=== PATIENT | female | born 2000 | race Caucasian/White ===

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

== ENCOUNTER → 2021-09-15 | Outpatient (CLI) | payer OTHER, MEDICAID, SELFPAY ==
[2021-09-18 06:08] LABS: Chlamydia By Nucleic Acid AMP Negative (Negative)
[2021-09-18 12:42] LABS: Gonococcus By Nucleic Acid AMP Negative (Negative)
== END | disposition home or self-care (01) ==
LOC: LABSPEC 12:12
PROVIDERS: PCP Family Medicine; Visit Provider Obstetrics & Gynecology
DX: Z11.3 Encounter for screening for infections with a predominantly sexual mode of transmission (principal)
CPT/HCPCS: 87491; 87591

== ENCOUNTER 2021-09-16 16:38 | Emergency (ER) | payer OTHER, MEDICAID, SELFPAY ==
[2021-09-16 16:39] VITALS: BP 117/63; PULSE 101; RESP 18; TEMP 38.3; O2SAT 99; BMI 19.9
--- NOTE | 2021-09-16 16:54 | EDS_ITS ---
HPI History of Present Illness Chief Complaint: General Illness Narrative Narrative: 20-year-old female past medical history of previous admission for pyelonephritis in June, 2 months ago, presents with left-sided back pain that she is had for 3 days. She has had fever, nausea, and vomiting additionally. Pain is mainly in her left low back. She has urinary hesitancy but no dysuria or pain with urination. She denies any gross hematuria but states that she had to her regular menses this month which was the reason why she was having blood in her urine. She recently took Tylenol 1 hour prior to arrival for a fever as high as 103 ?F. She denies any exacerbating or alleviating factors to her left back pain. She has had multiple episodes of nausea and vomiting since midnight, approximately 16 hours ago. [facility] Medical History Anxiety and depression COVID-19 Pyelonephritis Home Medications ondansetron 4 mg disintegrating tablet 4 mg PO Q6H PRN nausea and vomiting #20 tabs 09/16/21 [Rx Last Taken Unknown] sulfamethoxazole 800 mg-trimethoprim 160 mg tablet (Bactrim DS) 1 tab PO BID #20 tabs 09/16/21 [Rx Last Taken Unknown] Allergy/AdvReac Type Severity Reaction Status Date / Time morphine Allergy Hives Verified 09/16/21 16:42 ketorolac [From Toradol] AdvReac Vomiting Verified 09/16/21 16:42 Social History Smoking Status: Never smoker ROS ROS ED ROS Narrative Constitutional: Positive fever, no chills. HEENT: No sore throat. No neck pain. No loss of vision. No rhinorrhea. Cardiovascular: No chest pain. No palpitations. No pedal edema. Respiratory: No cough, no shortness of breath. Abdominal: No abdominal pain. Positive nausea. Positive vomiting. Genitourinary: No dysuria. No hematuria. Urinary hesitancy. Musculoskeletal: No myalgias. No arthralgias. Low back pain, left. Neurologic: No headaches. No dizziness. No lightheadedness. Skin: No rash. No change in color. Psychiatric: No depression. No anxiety. EXAM Physical Exam Narrative Exam Narrative: Elevated temperature. Vital signs noted. Nontoxic-appearing. HEENT: Normocephalic. Atraumatic. PERRL, EOMI. Neck soft and supple. No point tenderness or step off. Cardiovascular: Regular rate and rhythm with intermittent tachycardia.. No murmurs, rubs, or gallops appreciated. Respiratory: No tachypnea. Lungs clear to auscultation bilaterally. Gastrointestinal: Abdomen soft, nontender, with normoactive bowel sounds. No rebound or guarding. Neurological: Awake. Alert. Nonfocal, nonlateralizing. Skin: No rash. Normal color. No pallor. Musculoskeletal: No pedal edema. Full range of motion extremities. Positive CVA tenderness to percussion, left. Const Vital Signs: 09/16/21 16:39 09/16/21 17:15 09/16/21 19:26 Temperature 101 F H Temperature Source Temporal Pulse Rate 101 H Respiratory Rate 18 18 Respiratory Effort Normal Respiratory Pattern Normal Blood Pressure 117/63 Blood Pressure Mean 81 Pulse Ox 99 99 Oxygen Delivery Method Room Air Room Air 09/16/21 20:58 Temperature 100.4 F H Temperature Source Pulse Rate Respiratory Rate Respiratory Effort Respiratory Pattern Blood Pressure Blood Pressure Mean Pulse Ox Oxygen Delivery Method MDM MDM MDM Narrative Medical decision making narrative: Concern is for pyelonephritis on the left. She has an elevated temperature of 101 ?F in the emergency department. She is normotensive. I will obtain a CBC, CMP, urinalysis, and urine . She was bolused normal saline 1 L intravenously. Urine is negative. She has an elevated white count of 16.0, hemoglobin normal at 13.2, platelet count 266. Sodium 135 with a potassium of 3.4. Normal BUN of 8 and normal creatinine 0.7. Her urinalysis does show positive nitrites and greater than 100 WBCs. RBCs 5-10. I do feel that given her clinical picture that she has pyelonephritis. She has not had nausea and vomiting here in the emergency department. She was able to tolerate her oral Bactrim here. She will be given prescriptions for Bactrim and Zofran. I feel she can be discharged safely home with follow-up. She will take Tylenol as needed for her fever and pain. Follow-up with her primary care physician. She was told to return with intractable nausea and vomiting, inability to take her medications, new or worsening symptoms. She does not meet inpatient criteria as of yet. Disposition is discharged home in stable condition. Lab Data Attestation: I reviewed the patient's lab results. Labs: Laboratory Results - last 24 hr 09/16/21 09/16/21 09/16/21 17:03 17:03 17:03 WBC 16.0 H RBC 4.58 Hgb 13.2 Hct 39.3 MCV 85.8 MCH 28.8 MCHC 33.6 RDW Std Deviation 40.7 RDW Coeff of Rene 13.1 Plt Count 266 MPV 10.3 Immature Gran % (Auto) 0.500 Neut % (Auto) 82.3 H Lymph % (Auto) 7.8 L [place] % (Auto) 9.0 Eos % (Auto) 0.0 Baso % (Auto) 0.4 Absolute Neuts (auto) 13.1 H Absolute Lymphs (auto) 1.25 Nucleated RBC % 0 Sodium 135 L Potassium 3.4 L Chloride 104 Carbon Dioxide 22.0 Anion Gap 9 BUN 8 Creatinine 0.70 Estim Creat Clear Calc 100.90 Est GFR (MDRD) Af Amer 139 Est GFR (MDRD) Non-Af 115 BUN/Creatinine Ratio 11.5 Glucose 98 Calcium 8.7 Total Bilirubin 0.80 AST 10 L ALT 15 Alkaline Phosphatase 70 Total Protein 7.4 Albumin 3.5 Globulin 3.9 Albumin/Globulin Ratio 0.9 Urine Color Yellow Urine Clarity Cloudy Urine pH 6.0 Ur Specific [place] 1.020 Urine Protein 100 H Urine Glucose (UA) Normal Urine Ketones Negative Urine Occult Blood 25 H Urine Nitrite Positive H Urine Bilirubin Negative Urine Urobilinogen Normal Ur Leukocyte Esterase 500 H Urine RBC 5-10 SEEN Urine WBC >100 SEEN Ur Squamous Epith Cells 0-5 SEEN Urine Bacteria 4+ Urine Mucus 0 SEEN Urine Test Negative Discharge Plan Triage Chief Complaint: General Illness ED Provider: Ben Jones Dx/Rx/DC Orders Clinical Impression: Pyelonephritis, Left flank pain, Nausea and vomiting Instructions: Nausea Vomit Control, ED Pyelonephritis, Female (Adult) Prescriptions: New sulfamethoxazole-trimethoprim [Bactrim DS] 800-160 mg tablet 1 tab PO BID Qty: 20 0RF ondansetron 4 mg tablet,disintegrating 4 mg PO Q6H PRN (Reason: nausea and vomiting) Qty: 20 0RF Primary Care Provider: Samuel Howell Referrals: Samuel Howell MD [Primary Care Provider] - 3-5 Days Disposition Disposition: Home, Self Care Discharge Date/Time: 09/16/21 20:59
[2021-09-16] MEDS: 0.9% Normal Saline 1,000 ML 1000 ML IV (17:07)
[2021-09-16 17:17] LABS: Absolute Lymphocyte Count 1.25 X10^3/uL (0.83-4.51); Absolute Neutrophil Count 13.1 X10^3/uL (2.0-7.7); Basophil# 0.06 X10^3/uL; Basophil% 0.4 % (0-1); Hematocrit 39.3 % (37-47); Hemoglobin 13.2 g/dL (12.0-15.0); Lymphocyte # 1.25 X10^3/ul (0.83-4.51); Lymphocyte % 7.8 % (19-41); Mean Corp Hgb Conc 33.6 g/dL (32-36); Mean Corpuscular Hgb 28.8 pg (27.0-32.0); Mean Corpuscular Volume 85.8 fL (81-99); Mean Platelet Vol. 10.3 fl (6.2-12.0); Monocyte# 1.43 X10^3/uL; Mucous, Urine 0 SEEN /hpf (<or=2+); NRBC Flagged by Analyzer 0 % (0-5); Neutrophil # 13.13 X10^3/uL (2.7-7.7); Neutrophil % 82.3 % (47-70); Platelet Count 266 K/mm3 (150-450); RBC Distribution Width CV 13.1 % (11.6-14.6); RBC Distribution Width SD 40.7 fl (35.1-43.9); Red Blood Count 4.58 M/mm3 (4.2-5.4)
[2021-09-16 17:18] LABS: Color, Urine Yellow (Yellow); Glucose, Dipstick Normal (Normal); Ketone-Dipstick Negative (Negative); Leukocyte Esterase-Dipstick 500 /ul (Negative); Nitrite-Dipstick Positive (Negative); Occult Blood-Urine 25 /ul (Negative); Protein-Dipstick 100 mg/dl (Negative); Urine Bilirubin Dipstick Negative (Negative); Urine Clarity Cloudy (Clear); Urine Urobilinogen Normal (Normal)
[2021-09-16 17:21] LABS: Internal QC Validated? YES +Cl - CLEAR BKGD; Pregnancy, Urine Negative Negative
[2021-09-16 17:31] LABS: Bacteria 4+ /hpf (None Seen); Red Blood Cells-Urine 5-10 SEEN /hpf (0-5); Squamous Epithelial Cells - UA 0-5 SEEN /hpf (5-10); White Blood Cells >100 SEEN /hpf (0-5)
[2021-09-16 17:54] LABS: ALB/GLOB Ratio 0.9 RATIO (0.9-2.4); AST(SGOT) 10 U/L (15-37); Alanine Aminotransfer ALT/SGPT 15 U/L (13-56); Albumin, Serum 3.5 g/dL (3.2-5.0); Alkaline Phosphatase 70 U/L (45-117); Anion Gap 9 (5-15); BUN 8 mg/dL (7-18); BUN/Creat Ratio 11.5 RATIO (10-20); Calcium,Total 8.7 mg/dL (8.5-10.1); Chloride 104 mmol/L (98-107); EST Glomerular Filtration Rate 115 mL/min (>60); Est Glom Filt Rate - Afr Amer 139 mL/min (>60); Globulin 3.9 g/dL (2.2-4.2); Glucose 98 mg/dL (74-106); Potassium 3.4 mmol/L (3.5-5.1); Protein, Total 7.4 g/dL (6.4-8.2); Sodium Level 135 mmol/L (136-145)
[2021-09-16 19:26] VITALS: RESP 18; O2SAT 99
[2021-09-16] MEDS: Smz/Tmp Ds Tablet 1 TABLET PO (19:31)
[2021-09-16 20:58] VITALS: TEMP 38
== END 2021-09-16 20:59 | disposition home or self-care (01) ==
PROVIDERS: Emergency Provider Emergency Medicine; PCP Family Medicine; Visit Provider Emergency Medicine
DX: N12 Tubulo-interstitial nephritis, not specified as acute or chronic (principal); M54.9 Dorsalgia, unspecified; R10.9 Unspecified abdominal pain; R11.2 Nausea with vomiting, unspecified; Z86.16 Personal history of COVID-19; F41.9 Anxiety disorder, unspecified; F32.A Depression, unspecified
CPT/HCPCS: 80053; 81001; 81025; 85025; 87077; 87086; 87088; 87186; 96360; 99284; J7030

== ENCOUNTER 2021-11-27 21:00 | Emergency (ER) | payer OTHER, MEDICAID, SELFPAY ==
[2021-11-27 21:01] VITALS: BP 141/97; PULSE 105; RESP 16; TEMP 36; O2SAT 99; BMI 21.9
--- NOTE | 2021-11-27 21:54 | EDS_ITS ---
HPI HPI - GI History of Present Illness Chief Complaint: Abd Pain Informant: patient Narrative Narrative: Presents for evaluation worsening right pelvis lower quadrant tenderness starting periumbilical on Wednesday. Went to right lower quadrant that night. Went to [facility] Wednesday, 2 days ago, states CT scan and ultrasound performed positive for hemorrhagic cyst. She has a OB appointment in a week. She is on Percocet and ibuprofen last dose 6 hours ago with no improvement. Symptoms worsening. She does not know the size of the hemorrhagic cyst. Last menstrual period on the eighth. No urinary symptoms. No fevers. PFSH PFSH Medical History Anxiety and depression COVID-19 Pyelonephritis Home Medications NK 11/27/21 [History Last Taken Unknown] Allergy/AdvReac Type Severity Reaction Status Date / Time morphine Allergy Hives Verified 11/27/21 21:00 ketorolac [From Toradol] AdvReac Vomiting Verified 11/27/21 21:00 Social History Smoking Status: Never smoker ROS ROS ED Constitutional Constitutional ED: Denies chills, fever(s) or sweats Eyes Eyes: Denies change in vision ENT ENT ED: Denies dysphagia or sore throat Cardiovascular Cardiovascular: Denies chest pain, leg edema, palpitations or racing heartbeat Respiratory/Chest Respiratory/Chest: Denies cough, dyspnea or dyspnea on exertion Gastrointestinal Gastrointestinal: Reports abdominal pain; Denies diarrhea, nausea or vomiting Genitourinary Genitourinary ED: Denies dysuria, hematuria or urinary frequency Musculoskeletal Musculoskeletal: Denies back pain, extremity pain or neck pain Integumentary Denies rash or wounds Neurologic Neurologic: Denies headache(s), paresthesias or weakness EXAM Physical Exam Const Vital Signs: 11/27/21 21:01 11/27/21 23:37 Temperature 96.8 F L Temperature Source Temporal Pulse Rate 105 H Respiratory Rate 16 18 Blood Pressure 141/97 H Blood Pressure Mean 111 Pulse Ox 99 Oxygen Delivery Method Room Air Positive well nourished and well developed General Appearance ED: well developed and NAD HEENT Reports moist mucous membranes normocephalic and atraumatic Eyes PERRL, EOMs intact bilaterally and conjunctivae normal General Eye ED: Yes normal appearance of both eyes Neck no lymphadenopathy and supple General: Negative for tenderness Chest Wall Chest: Negative for tenderness Resp normal respiratory effort and normal air movement Effort and Inspection: symmetric chest movement; Negative for respiratory distress Cardio regular rate, regular rhythm and no murmurs Peripheral Pulses: pulses 2+ throughout GI normal to inspection, nondistended, normoactive bowel sounds GI Narrative: Tender palpation right pelvis. Palpation: Negative for guarding or rebound tenderness present Back/Spine no CVA tenderness and no thoracic nor lumbar tenderness Extremity normal to inspection General Extremety ED: Negative for edema or tenderness General Extremity: Negative for edema Neuro oriented x3 and no sensory deficits noted Sensorium / Orientation: awake and alert Skin no rashes or lesions noted and no wounds MDM MDM MDM Narrative Medical decision making narrative: Patient tender right pelvis labs are drawn. hCG negative. Urine noted leukocytes WBCs however 10-25 epithelials. Culture sent. She denies any urine symptoms. White count 7 hemoglobin 13.9 creatinine 0.7. I was able to pull up her records from [facility] she had a CT scan 2 days ago with a normal appendix she had a 2.9 cm right ovarian hemorrhagic cyst. With her increasing pain without relief from oxycodone's. She was given IV Dilaudid for which she is tolerated. I read ultrasound her pelvis with her known history. Results per radiology a 3.5 cm right hemorrhagic cyst there is only small amount of free fluid. Vitals are stable, hemoglobin stable at 13.9. 2315: I spoke with her automotive accessory installer Dr. Scot Traore who is on, I discussed her history and findings and her pain not improving with IV Dilaudid. He states slight enlargement of the cyst is relative with only half centimeter difference. He states with her pain, this is not an adnexal etiology. He states there will be no surgical intervention with the cysts. He recommends looking for other etiologies and she can follow-up as scheduled in 1 week as planned. I discussed this with the patient, she will be treated additional pain control IV p.o. contrast CT abdomen and pelvis will be obtained for further evaluation. Patient signed out to night physician. Lab Data Attestation: I reviewed the patient's lab results. Labs: Laboratory Results - last 24 hr 11/27/21 11/27/21 11/27/21 21:40 21:40 21:42 WBC 7.0 RBC 4.82 Hgb 13.9 Hct 40.5 MCV 84.0 MCH 28.8 MCHC 34.3 RDW Std Deviation 41.5 RDW Coeff of Rene 13.5 Plt Count 270 MPV 10.4 Immature Gran % (Auto) 0.100 Neut % (Auto) 56.8 Lymph % (Auto) 35.9 [place] % (Auto) 6.1 Eos % (Auto) 0.7 Baso % (Auto) 0.4 Absolute Neuts (auto) 4.0 Absolute Lymphs (auto) 2.51 Nucleated RBC % 0 Sodium 139 Potassium 3.8 Chloride 106 Carbon Dioxide 24.0 Anion Gap 9 BUN 10 Creatinine 0.70 Estim Creat Clear Calc 101.39 Est GFR (MDRD) Af Amer 137 Est GFR (MDRD) Non-Af 113 BUN/Creatinine Ratio 14.3 Glucose 78 Calcium 9.3 Urine Color Yellow Urine Clarity Sl. Cloudy Urine pH 6.0 Ur Specific [place] 1.020 Urine Protein 15 H Urine Glucose (UA) Normal Urine Ketones 50 H Urine Occult Blood 10 H Urine Nitrite Negative Urine Bilirubin Negative Urine Urobilinogen Normal Ur Leukocyte Esterase 500 H Urine RBC 5-10 SEEN Urine WBC 50-100 SEEN Ur Squamous Epith Cells 10-25 SEEN Urine Bacteria 4+ Urine Mucus 0 SEEN Urine Test Negative Radiography Diagnostic Testing: Clinical Impression(s) from Imaging Studies Transvaginal US 11/27/21 22:03 IMPRESSION: Probable hemorrhagic cyst measuring 3.5 cm right ovary. Small amount of free fluid in the cul-de-sac. Electronically Signed: Nik De Guzman MD at 23:04 EDT , Discharge Plan Triage Chief Complaint: Abd Pain ED Provider: Roc Bryant Dx/Rx/DC Orders Clinical Impression: Abdominal pain, RLQ, Pelvic pain, Hemorrhagic cyst of right ovary Prescriptions: No Action NK Primary Care Provider: Samuel Howell Referrals: Samuel Howell MD [Primary Care Provider] -
[2021-11-27 22:03] LABS: Mucous, Urine 0 SEEN /hpf (<or=2+)
--- NOTE | 2021-11-27 22:03 | US_ITS ---
EXAM: US PELVIS TRANSVAGINAL AND US DUPLEX ARTERIAL/VENOUS OF THE PELVIS, COMPLETE CLINICAL INDICATION: pelvic pain -- 2.9cm right hemorrhagic cyst 2 days ago, inc pain TECHNIQUE: Transvaginal pelvic ultrasound was performed with grayscale imaging. Transvaginal imaging was used for better evaluation of the endometrium and adnexa. Real-time duplex ultrasound scan of the arterial and venous flow of the pelvis with color Doppler flow and spectral waveform analysis. This report was created using [employer] report generation technology. COMPARISON: None. FINDINGS: UTERUS/CERVIX: Unremarkable. Anteverted. There is no uterine mass. The uterus measures 7.5 x 5.5 x 4.5 cm. The endometrial stripe measures 1.1 cm in thickness. RIGHT OVARY: Complex cyst right ovary measuring 3.5 x 3.5 x 2.5 cm with numerous fine septations. There is normal arterial inflow and venous outflow present in the right ovary. The right ovary measures 6.1 x 4.5 x 3.0 cm. LEFT OVARY: Unremarkable. There is normal arterial inflow and venous outflow present in the left ovary. The left ovary measures 3.4 x 2.3 x 1.6 cm. FREE FLUID: Small amount of free fluid in the cul-de-sac. BLADDER: Empty bladder which cannot be evaluated with this probe. US/Transvaginal Non- IMPRESSION: Probable hemorrhagic cyst measuring 3.5 cm right ovary. Small amount of free fluid in the cul-de-sac. Electronically Signed: Nik De Guzman MD at 23:04 EDT ,
[2021-11-27] MEDS: Ondansetron 4 MG/2 ML Vial IV (22:04)
[2021-11-27] MEDS: 0.9% Normal Saline 1,000 ML 1000 ML IV (22:04)
[2021-11-27] MEDS: HYDROmorphone 1 MG/ML Syringe IV ×2 (22:05→23:32)
[2021-11-27 22:07] LABS: Absolute Lymphocyte Count 2.51 X10^3/uL (0.83-4.51); Basophil# 0.03 X10^3/uL; Basophil% 0.4 % (0-1); Eosinophil# 0.05 X10^3/uL; Eosinophils% 0.7 % (0-5); Hematocrit 40.5 % (37-47); Hemoglobin 13.9 g/dL (12.0-15.0); Lymphocyte # 2.51 X10^3/ul (0.83-4.51); Lymphocyte % 35.9 % (19-41); Mean Corp Hgb Conc 34.3 g/dL (32-36); Mean Corpuscular Hgb 28.8 pg (27.0-32.0); Mean Platelet Vol. 10.4 fl (6.2-12.0); Monocyte# 0.43 X10^3/uL; Monocyte% 6.1 % (0-10); NRBC Flagged by Analyzer 0 % (0-5); Neutrophil # 3.97 X10^3/uL (2.7-7.7); Neutrophil % 56.8 % (47-70); Platelet Count 270 K/mm3 (150-450); RBC Distribution Width CV 13.5 % (11.6-14.6); RBC Distribution Width SD 41.5 fl (35.1-43.9); Red Blood Count 4.82 M/mm3 (4.2-5.4)
[2021-11-27 22:08] LABS: Color, Urine Yellow (Yellow); Glucose, Dipstick Normal (Normal); Ketone-Dipstick 50 mg/dl (Negative); Leukocyte Esterase-Dipstick 500 /ul (Negative); Nitrite-Dipstick Negative (Negative); Occult Blood-Urine 10 /ul (Negative); Protein-Dipstick 15 mg/dl (Negative); Urine Bilirubin Dipstick Negative (Negative); Urine Clarity Sl. Cloudy (Clear); Urine Urobilinogen Normal (Normal)
[2021-11-27 22:14] LABS: Internal QC Validated? YES +Cl - CLEAR BKGD; Pregnancy, Urine Negative Negative
[2021-11-27 22:18] LABS: Red Blood Cells-Urine 5-10 SEEN /hpf (0-5); Squamous Epithelial Cells - UA 10-25 SEEN /hpf (5-10); White Blood Cells 50-100 SEEN /hpf (0-5)
[2021-11-27 22:19] LABS: Bacteria 4+ /hpf (None Seen)
[2021-11-27 22:26] LABS: Anion Gap 9 (5-15); BUN 10 mg/dL (7-18); BUN/Creat Ratio 14.3 RATIO (10-20); Calcium,Total 9.3 mg/dL (8.5-10.1); Chloride 106 mmol/L (98-107); EST Glomerular Filtration Rate 113 mL/min (>60); Est Glom Filt Rate - Afr Amer 137 mL/min (>60); Estimated Creatinine Clearance 101.39 ml/min; Glucose 78 mg/dL (74-106); Potassium 3.8 mmol/L (3.5-5.1); Sodium Level 139 mmol/L (136-145)
[2021-11-27] MEDS: 0.9% Normal Saline 1,000 ML 150 ML IV (23:31)
[2021-11-27 23:37] VITALS: RESP 18
[2021-11-28 01:54] VITALS: BP 122/74; PULSE 74; RESP 18; O2SAT 96
--- NOTE | 2021-11-28 23:17 | CT_ITS ---
EXAM: CT ABDOMEN AND PELVIS WITH INTRAVENOUS CONTRAST CLINICAL INDICATION: RLQ pain -- oral and IV contrast TECHNIQUE: Helically acquired images were obtained of the abdomen and pelvis with intravenous contrast. This CT exam was performed using one or more of the following dose reduction techniques: automated exposure control, adjustment of the mA and/or kV according to patient size, and/or use of iterative reconstruction technique. This report was created using [employer] report generation technology. CONTRAST: 100 cc of Isovue-300 IV. With oral Gastrografin. RADIATION DOSE: CTDIvol = 11.36 mGy, DLP = 306.65 mGy-cm. COMPARISON: 11/28/2019 FINDINGS: LOWER THORAX: Unremarkable. Lung bases are clear. No cardiomegaly. No significant pericardial effusion. ABDOMEN: LIVER: Unremarkable. Homogeneous. No focal mass. GALLBLADDER AND BILE DUCTS: Unremarkable. No calcified gallstones. No gallbladder distention or wall edema. No intra- or extrahepatic biliary ductal dilation. PANCREAS: Unremarkable. No focal cystic or solid mass. SPLEEN: Unremarkable. Normal size without focal cystic or solid mass. ADRENALS: Unremarkable. No nodules. KIDNEYS AND URETERS: Unremarkable. Normal renal size and position. No hydronephrosis. STOMACH AND BOWEL: Unremarkable. No stomach or bowel distention. No focal inflammatory change. PELVIS: APPENDIX: The appendix is not identified with certainty but there are no signs of appendicitis. BLADDER: Unremarkable. REPRODUCTIVE: Cyst with a fluid fluid level measuring 4 cm right adnexa. ABDOMEN and PELVIS: INTRAPERITONEAL SPACE: Unremarkable. No ascites or other fluid collection. No free air. BONES/JOINTS: Unremarkable. No suspicious lytic or blastic abnormality. SOFT TISSUES: Unremarkable. No discrete abdominal or pelvic wall hernia. VASCULATURE: Unremarkable. Abdominal aorta is non-dilated. LYMPH NODES: Unremarkable. No enlarged lymph nodes. CT/Abdomen/Pelvis WITH Contrast IMPRESSION: 1. Probable 4 cm hemorrhagic cyst right ovary. No evidence of torsion. 2. The appendix is not identified with certainty but there are no signs of appendicitis. Electronically Signed: Nik De Guzman MD at 1:43 EDT ,
== END 2021-11-28 01:55 | disposition home or self-care (01) ==
PROVIDERS: Emergency Provider Emergency Medicine; PCP Family Medicine; Visit Provider Emergency Medicine
DX: N83.201 Unspecified ovarian cyst, right side (principal); R10.2 Pelvic and perineal pain
CPT/HCPCS: 74177; 76830; 80048; 81001; 81025; 85025; 87086; 87088; 87186; 93976; 96361; 96374; 96375; 96376; 99282; J7030; Q9967; A4216; J2405

== ENCOUNTER 2021-12-22 05:54 | Day surgery (SDC) | payer OTHER, MEDICAID, SELFPAY ==
[2021-12-17 12:16] LABS: Absolute Lymphocyte Count 1.75 X10^3/uL (0.83-4.51); Absolute Neutrophil Count 3.5 X10^3/uL (2.0-7.7); Basophil# 0.04 X10^3/uL; Basophil% 0.7 % (0-1); Eosinophil# 0.06 X10^3/uL; Hematocrit 41.2 % (37-47); Hemoglobin 13.5 g/dL (12.0-15.0); Lymphocyte # 1.75 X10^3/ul (0.83-4.51); Lymphocyte % 29.9 % (19-41); Mean Corp Hgb Conc 32.8 g/dL (32-36); Mean Corpuscular Hgb 28.7 pg (27.0-32.0); Mean Corpuscular Volume 87.7 fL (81-99); Monocyte% 6.8 % (0-10); NRBC Flagged by Analyzer 0 % (0-5); Neutrophil # 3.54 X10^3/uL (2.7-7.7); Neutrophil % 60.6 % (47-70); Platelet Count 284 K/mm3 (150-450); RBC Distribution Width CV 13.6 % (11.6-14.6); RBC Distribution Width SD 44.1 fl (35.1-43.9); White Blood Count 5.9 K/mm3 (4.4-11.0)
[2021-12-22] MEDS: Lactated Ringers 1,000 ML 125 ML IV (06:40)
[2021-12-22 06:42] VITALS: BP 102/62; PULSE 76; RESP 14; TEMP 36.7; O2SAT 97; BMI 21.3
[2021-12-22 07:13] LABS: Internal QC Validated? YES +Cl - CLEAR BKGD
[2021-12-22 07:14] LABS: Pregnancy, Urine Negative Negative
--- NOTE | 2021-12-22 07:23 | PCM.HP.BLA ---
History and Physical Date of Admission: 12/22/21 Chief complaint: Pelvic pain History present illness: 21-year-old G1, P1 for diagnostic laparoscopy. Educated patient on risk benefits alternatives. Patient states understanding wish to proceed. No medical changes since last seen. All questions answered and consent signed. Obstetric history: G1: 39-week Past medical history: None Medications: None Allergies: Morphine, Toradol Past surgical history: Tonsils and adenoids, left shoulder Family history: Denies history of DVT or PE Social history: Denies smoking, alcohol, drug use Review of systems: Besides above pertinent positives a full review of systems was performed and found to be negative Physical exam: Vitals: Blood pressure 102/62 pulse 76 respiratory rate 14 temperature 98.1 ?F SPO2 97% on room air General: Normal-appearing no acute distress HEENT: Normocephalic and atraumatic no cervical lymphadenopathy Cardiac/respiratory: No use of accessory muscles, nonlabored breathing Abdomen: Soft, nontender, nondistended Extremities: No peripheral edema normal peripheral pulses Psych: Normal affect normal demeanor nonpressured speech Labs: Urine test negative Assessment plan: 21-year-old G1, P1 for diagnostic laparoscopy. Educated patient on procedure along with postoperative recovery. Patient states understanding and wished to proceed.
[2021-12-22 07:33] LABS: Partial Thromboplast Time 30.7 Seconds (24.1-36.2); Prothrombin Time (Protime)PT. 13.3 SECONDS (11.7-14.9)
--- NOTE | 2021-12-22 08:35 | DCINST_ITS ---
Discharge Instructions Diet Discharge Diet: No restrictions Activity Discharge Activity: Return to Normal Activity, May Drive, May Shower and - (No tub baths for 2 weeks) May resume sexual activity in: 4-6 weeks Lifting Restrictions: No lifting over 25 pounds for 2 to 3 weeks Dressing / Incision Call your doctor if your incision/area has: Continuous Slow Oozing and Foul Smelling Discharge Call your doctor if you observe: Fever of 101 or Higher, Shortness of breath and Chest pain Follow Up Care Please Follow Up With: Scot Traore MD When: 2 weeks postoperatively Test Results: Test results from this visit will be discussed in further detail at your follow- up appointment, if applicable. Discharge Plan Admission Attending Provider: Scot Traore Primary Care Provider: Samuel Howell Discharge Orders/Prescriptions Prescriptions: No Action NK Referrals / Follow Up: Samuel Hoewll MD [Primary Care Provider] - Disposition Disposition (needs filled in before D/C Order can be placed): Home, Self Care
[2021-12-22 08:36] VITALS: BP 102/62; BP 116/75; PULSE 78; RESP 16; TEMP 36.7; O2SAT 100
--- NOTE | 2021-12-22 08:36 | PCM.OPRPT ---
Report of Operation Date of Procedure: 12/22/21 Pre-Operative Diagnosis: Pelvic pain Post-Operative Diagnosis: Pelvic pain, suspected endometriosis Surgery/Procedure Performed:: Diagnostic laparoscopy, fulguration of endometriosis Description of Surgical Findings:: Surgeon: Scot Troare MD Anesthesia: General EBL: 10 cc Urine output: 25 cc IV fluids: 700 cc Complications: None Specimen: None Findings: Normal uterus, tubes, and ovaries. Right uterosacral ligament with powder burn lesion suspicious for endometriosis, also powder burn lesion on left posterior portion of broad ligament all fulgurated. Left parotid brain lesion over posterior portion of broad ligament superior to her ureter, surgically avoided secondary to possible damage to the ureter. Appendix visualized with no pathology noted. Constipation noted in distal colon Consent: Patient with pelvic pain elects for diagnostic laparoscopy. Educated patient on the risk benefits alternatives include but are not limited to visceral or vascular injury, prolonged hospitalization, blood loss need for transfusion, reoperation. Patient state understanding wish to proceed. All questions were answered and consent was signed. Procedure: Patient was brought back to the OR where general anesthesia was found to be adequate. Patient was prepared and draped in dorsolithotomy position with yellowfin stirrups. A weighted speculum is placed in the posterior aspect of the vagina. Cervical dilators were used to dilate cervix. Uterine manipulator was placed. Varies needle was inserted at the umbilicus, water safety test was passed and abdomen was insufflated. 5 mm supraumbilical midline trocar inserted under direct visualization. Laparoscope was inserted and above findings were noted. Left lower quadrant 5 mm trocar was inserted under direct visualization. Using an atraumatic grasper exploration of lower pelvis was performed along with upper abdomen. Above findings were noted. Bilateral ureters were visualized at all points during the procedure. Using [place] with electrocautery fulguration was performed on right uterosacral out of brain lesion along with left posterior portion of broad ligament powder burn lesion. Bladder brown lesion over posterior portion of broad ligament superior to the ureter was left secondary to risk for ureteral injury. Good hemostasis was noted. Abdomen was desufflated and trochars were removed under direct visualization. Good hemostasis was noted. Trocar sites were closed in a subcutaneous fashion. Good hemostasis was noted. All counts were correct x2. Patient tolerated the procedure well and was brought to recovery in a stable condition. office inspector: Otoniel Ponce
--- NOTE | 2021-12-22 08:38 | SUR.PHASEI ---
Per Dr Traore, ok to d/c without void
[2021-12-22 08:45] VITALS: BP 102/62; BP 107/75; PULSE 83; RESP 16; O2SAT 100
[2021-12-22 09:00] VITALS: BP 102/62; BP 104/69; PULSE 61; RESP 16; O2SAT 99
[2021-12-22 09:06] VITALS: BP 102/62; PULSE 58; RESP 16; TEMP 36.3; O2SAT 99
[2021-12-22 09:41] VITALS: BP 102/62
== END 2021-12-22 09:46 | disposition home or self-care (01) ==
LOC: SDC 05:54 → AC 05:55
PROVIDERS: Anesthesiology; PCP Family Medicine; Referring Provider Obstetrics & Gynecology; Visit Provider Obstetrics & Gynecology
PROC: (CPT 49320; principal; 2021-12-22 07:15)
DX: N80.3 Endometriosis of pelvic peritoneum (principal); R10.2 Pelvic and perineal pain
CPT/HCPCS: 49320; 00790; 36415; 81025; 85025; 85610; 85730; 86850; 86900; 86901; J7120; J2405

== ENCOUNTER 2021-12-24 14:00 | Emergency (ER) | payer OTHER, MEDICAID, SELFPAY ==
[2021-12-24 14:02] VITALS: BP 114/79; PULSE 104; RESP 18; TEMP 36.4; O2SAT 98; BMI 21.5
[2021-12-24 14:20] VITALS: BP 114/77; PULSE 89; RESP 15; O2SAT 98
[2021-12-24 14:21] VITALS: BMI 21.3
--- NOTE | 2021-12-24 14:40 | EDS_ITS ---
HPI History of Present Illness Chief Complaint: Neuro S/Sx Informant: patient Onset/Context/Timing Onset: Today and Hours (5) Context: Sudden Onset Timing: Continuous Quality: Headache Location: Left side near the midline Worsened by: Nothing Relieved by: Nothing Associated Symptoms Associated Symptoms: Chest pain, left arm pain, dyspnea Narrative Narrative: Patient presents with diplopia that began this morning. Patient states it began approximately 5 hours prior to arrival. Patient states it came on rather suddenly. Patient states she is actually seeing 3 objects of everything. Patient states nothing makes it better and nothing makes it worse. Patient does admit to a mild left-sided headache. Patient states she has had a fever of 101 at home. Patient also admits to some pain in her left upper chest that radiates into her left arm. Patient admits to some shortness of breath. Patient states she has pain in her chest with deep breathing. Patient had a recent ovarian cyst surgery 2 days ago. [facility] Medical History Alcohol use Anxiety and depression Asthma Back pain Blood disorder COVID-19 Easy bruising Excessive bleeding History of renal disease Injury of head and neck Leg cramps Low iron Marijuana use Migraine headache Non-smoker Ovarian cyst Pyelonephritis Seizures Syncope Home Medications lorazepam 0.5 mg tablet 0.5 mg PO TID #10 tabs 12/24/21 [Rx Last Taken Unknown] Allergy/AdvReac Type Severity Reaction Status Date / Time morphine Allergy Hives Verified 12/24/21 14:01 ketorolac [From Toradol] AdvReac Vomiting Verified 12/24/21 14:01 Surgical History History of tonsillectomy and adenoidectomy Hx of shoulder surgery Social History Smoking Status: Never smoker ROS ROS ED Constitutional Constitutional ED: Reports chills and fever(s) Eyes Eyes: Reports change in vision and diplopia; Denies blurry vision ENT ENT ED: Denies rhinorrhea or sore throat Cardiovascular Cardiovascular: Reports chest pain; Denies palpitations Respiratory/Chest Respiratory/Chest: Reports dyspnea; Denies cough Gastrointestinal Gastrointestinal: Reports nausea; Denies vomiting Genitourinary Genitourinary ED: Denies dysuria or hematuria Musculoskeletal Musculoskeletal: Denies back pain or neck pain Integumentary Denies abscess or rash Neurologic Neurologic: Reports headache(s); Denies weakness Allergic/Immunologic Allergic/Immunologic ED: Denies mouth swelling or urticaria EXAM Physical Exam Const Vital Signs: 12/24/21 14:02 12/24/21 14:20 Temperature 97.6 F L Temperature Source Temporal Pulse Rate 104 H 89 Respiratory Rate 18 15 Blood Pressure 114/79 114/77 Blood Pressure Mean 90 89 Pulse Ox 98 98 Oxygen Delivery Method Room Air Room Air Positive well nourished and well developed General Appearance ED: well developed HEENT Reports moist mucous membranes Eyes PERRL Eyes Narrative: There is a disconjugate gaze noted. Neck supple and no JVD Resp normal respiratory effort and clear to auscultation bilaterally Cardio regular rate, regular rhythm and no murmurs GI normal to inspection, nondistended, normoactive bowel sounds and non-tender Palpation: soft Extremity normal to inspection General Extremety ED: Negative for edema or tenderness General Extremity: Negative for edema Neuro oriented x3, CN's II-XII intact bilaterally and no sensory deficits noted Sensorium / Orientation: alert Motor Exam: strength 5/5 throughout Psych mental status grossly normal Skin no rashes or lesions noted MDM MDM MDM Narrative Medical decision making narrative: Patient was given a dose of Benadryl. Patient was given IV fluids. EKG was obtained. On my interpretation, it showed a normal sinus rhythm with a rate of 91. SC interval, QRS interval, and QTc intervals were all normal. [place] was normal. There are no acute ST or T wave changes. CBC was within normal limits. PT with INR and PTT were within normal limits. Comprehensive metabolic profile was within normal limits. High-sensitivity troponin was normal. CTA of the chest was obtained. There is no evidence of pulmonary embolism or aortic dissection. This was interpreted by the radiologist and reviewed by myself. CT scan of the brain was obtained. There is no acute intracranial abnormality. This was interpreted by the radiologist and reviewed by myself. Patient was advised of her findings. Patient is able to track my finger with both eyes. However after this her eyes began to cross again. Patient was given a dose of Cogentin. On reevaluation, the patient's left eye is still deviated medially. However, she is able to track both eyes medially and laterally. I suspect that this is more of a dystonic reaction than acute stroke. Patient was given a prescription for a short course of Ativan. Patient was instructed to follow-up with her primary care physician in 3 to 5 days. Patient understood and was agreeable with the plan. All questions were answered. Lab Data Attestation: I reviewed the patient's lab results. Labs: Laboratory Results - last 24 hr 12/24/21 12/24/21 12/24/21 15:00 15:00 15:00 WBC 7.5 RBC 4.62 Hgb 13.4 Hct 39.5 MCV 85.5 MCH 29.0 MCHC 33.9 RDW Std Deviation 41.6 RDW Coeff of Rene 13.5 Plt Count 265 MPV 10.6 Immature Gran % (Auto) 0.400 Neut % (Auto) 70.4 H Lymph % (Auto) 21.2 Mccone % (Auto) 6.7 Eos % (Auto) 0.9 Baso % (Auto) 0.4 Absolute Neuts (auto) 5.2 Absolute Lymphs (auto) 1.58 Nucleated RBC % 0 PT 13.2 INR 1.0 APTT 21.0 L Sodium 139 Potassium 4.4 Chloride 108 H Carbon Dioxide 25.0 Anion Gap 6 BUN 7 Creatinine 0.76 Estim Creat Clear Calc 93.39 Est GFR (MDRD) Af Amer 125 Est GFR (MDRD) Non-Af 103 BUN/Creatinine Ratio 9.2 L Glucose 93 Calcium 9.0 Total Bilirubin 0.60 AST 32 ALT 14 Alkaline Phosphatase 67 Troponin I High Sens < 3 L Total Protein 7.7 Albumin 4.0 Globulin 3.7 Albumin/Globulin Ratio 1.1 Radiography Diagnostic Testing: Clinical Impression(s) from Imaging Studies Brain CT 12/24/21 14:43 IMPRESSION: Normal unenhanced CT scan of the brain. Electronically Signed: Marcelino Lemon MD at 15:38 EDT , Chest CTA 12/24/21 14:45 IMPRESSION: Normal CTA chest examination, without a demonstrated pulmonary embolism or arterial dissection. Electronically Signed: Marcelino Lemon MD at 15:40 EDT , EKG Initial EKG: Attestation: I personally reviewed and interpreted this EKG as follows: Interpretation: Sinus Rhythm (91) and No Acute Injury Pattern Prior EKG tracings: available for review Prior: Unchanged (05/21/2020) Discharge Plan Triage Chief Complaint: Neuro S/Sx ED Provider: Clifford Cobb Dx/Rx/DC Orders Clinical Impression: Diplopia, Dystonic drug reaction Instructions: ED Double Vision (Diplopia), ED Medicine Reaction, Dystonic Prescriptions: New lorazepam [lorazepam] 0.5 mg tablet 0.5 mg PO TID Qty: 10 0RF Primary Care Provider: Samuel Howell Referrals: Samuel Howell MD [Primary Care Provider] - 3-5 Days Disposition Disposition: Home, Self Care
--- NOTE | 2021-12-24 14:43 | CT_ITS ---
STUDY: CT BRAIN WITHOUT CONTRAST REASON FOR EXAM: Female, 21 years old. Headache, diplopia. Left arm and left leg numbness. RADIATION DOSAGE (If Supplied By Facility): CTDIvol = ( 44.99 ) mGy, DLP = ( 796.11 ) mGycm TECHNIQUE: Transaxial CT imaging of the brain was performed without administration of intravenous contrast material. Individualized dose optimization techniques were used for this CT. COMPARISON: No relevant priors. FINDINGS: Normal soft tissue structures. Normal calvarium. Normal size ventricles and extra-axial spaces for the patient''s age. Normal white matter tracts of the cerebral hemispheres. Normal basal ganglia and thalami. Normal brainstem. Normal cerebellum. There is no intracranial hemorrhage. There are no findings of an acute ischemic infarction. Normal visualized paranasal sinuses. CT/Brain/Head without Contrast IMPRESSION: Normal unenhanced CT scan of the brain. Electronically Signed: Marcelino Lemon MD at 15:38 EDT ,
--- NOTE | 2021-12-24 14:44 | EKG12_ITS ---
Test Reason : Blood Pressure : / mmHG Vent. Rate : 091 BPM Atrial Rate : 091 BPM P-R Int : 136 ms QRS Dur : 098 ms QT Int : 370 ms P-R-T Axes : 045 033 026 degrees QTc Int : 455 ms Normal sinus rhythm Normal ECG Confirmed by NU OTOOLE, NIHARIKA ([id number]), scientific publications editor PATTI DIAZ ([id number]) on 12/25/2021 1:00:23 PM Referred By: Confirmed By:JAMEE JUDGE MD
--- NOTE | 2021-12-24 14:45 | CT_ITS ---
STUDY: CTA CHEST REASON FOR EXAM: Female, 21 years old. Dyspnea. Chest pain. RADIATION DOSAGE (If Supplied By Facility): CTDIvol = ( 5.16 ) mGy, DLP = ( 133.91 ) mGycm TECHNIQUE: The examination was performed with the intravenous administration of IV 100mL Isovue-370. Post-processing of the angiographic images was performed, with multiplanar reformation and 3D reconstruction. Individualized dose optimization techniques were used for this CT. COMPARISON: Comparison is made with prior study dated 05/21/2020. FINDINGS: Normal enhancement of the main pulmonary artery and right and left pulmonary arteries. Normal enhancement of the bilateral peripheral pulmonary arteries. There is no demonstrated pulmonary embolism. Normal thoracic aorta and visualized great vessels. There is no demonstrated aortic dissection. Normal heart and pericardium. Normal mediastinum. Normal hilar regions. Normal visualized trachea and bronchi. The lungs are well expanded. Normal pulmonary parenchyma. Normal pleura. Normal chest wall structures. Normal osseous structures. Normal visualized upper abdomen. CT/CTA Chest W/WO Contrast IMPRESSION: Normal CTA chest examination, without a demonstrated pulmonary embolism or arterial dissection. Electronically Signed: Marcelino Lemon MD at 15:40 EDT ,
[2021-12-24] MEDS: DiphenhydrAMINE 50 MG/ML Syringe 25 MG IV (14:55)
[2021-12-24] MEDS: 0.9% Normal Saline 1,000 ML 1000 ML IV (14:56)
[2021-12-24 15:09] LABS: Absolute Lymphocyte Count 1.58 X10^3/uL (0.83-4.51); Absolute Neutrophil Count 5.2 X10^3/uL (2.0-7.7); Basophil# 0.03 X10^3/uL; Basophil% 0.4 % (0-1); Eosinophil# 0.07 X10^3/uL; Eosinophils% 0.9 % (0-5); Hematocrit 39.5 % (37-47); Hemoglobin 13.4 g/dL (12.0-15.0); Lymphocyte # 1.58 X10^3/ul (0.83-4.51); Lymphocyte % 21.2 % (19-41); Mean Corp Hgb Conc 33.9 g/dL (32-36); Mean Corpuscular Volume 85.5 fL (81-99); Mean Platelet Vol. 10.6 fl (6.2-12.0); Monocyte% 6.7 % (0-10); NRBC Flagged by Analyzer 0 % (0-5); Neutrophil # 5.24 X10^3/uL (2.7-7.7); Neutrophil % 70.4 % (47-70); Platelet Count 265 K/mm3 (150-450); RBC Distribution Width CV 13.5 % (11.6-14.6); RBC Distribution Width SD 41.6 fl (35.1-43.9); Red Blood Count 4.62 M/mm3 (4.2-5.4); White Blood Count 7.5 K/mm3 (4.4-11.0)
[2021-12-24 15:22] LABS: Prothrombin Time (Protime)PT. 13.2 SECONDS (11.7-14.9)
[2021-12-24 15:45] LABS: ALB/GLOB Ratio 1.1 RATIO (0.9-2.4); AST(SGOT) 32 U/L (15-37); Alanine Aminotransfer ALT/SGPT 14 U/L (13-56); Alkaline Phosphatase 67 U/L (45-117); Anion Gap 6 (5-15); BUN 7 mg/dL (7-18); BUN/Creat Ratio 9.2 RATIO (10-20); Chloride 108 mmol/L (98-107); Creatinine, Serum 0.76 mg/dL (0.55-1.02); EST Glomerular Filtration Rate 103 mL/min (>60); Est Glom Filt Rate - Afr Amer 125 mL/min (>60); Estimated Creatinine Clearance 93.39 ml/min; Globulin 3.7 g/dL (2.2-4.2); Glucose 93 mg/dL (74-106); Potassium 4.4 mmol/L (3.5-5.1); Protein, Total 7.7 g/dL (6.4-8.2); Sodium Level 139 mmol/L (136-145); Troponin-I HS < 3 pg/mL (3.0-54.0)
[2021-12-24 16:30] VITALS: BP 106/86
== END 2021-12-24 16:30 | disposition home or self-care (01) ==
PROVIDERS: Emergency Provider Emergency Medicine; PCP Family Medicine; Visit Provider Emergency Medicine
DX: H53.2 Diplopia (principal); R06.02 Shortness of breath; R51.9 Headache, unspecified; G24.02 Drug induced acute dystonia; J45.909 Unspecified asthma, uncomplicated
CPT/HCPCS: 70450; 71275; 80053; 84484; 85025; 85610; 85730; 93005; 96361; 96374; 96375; 99285; J7030; Q9967; A4216

== ENCOUNTER 2022-06-22 06:10 | Emergency (ER) | payer OTHER, MEDICAID, SELFPAY ==
[2022-06-22 06:10] VITALS: BP 123/78; PULSE 102; RESP 18; TEMP 36.8; O2SAT 96; BMI 21.7
[2022-06-22] MEDS: Benzonatate 100 MG Capsule 200 MG PO (06:46)
[2022-06-22] MEDS: Ondansetron ODT 4 MG Tablet PO (06:47)
[2022-06-22] MEDS: dexAMETHasone 10 MG/ML Vial PO.IVFORM (06:47)
--- NOTE | 2022-06-22 06:50 | RAD_ITS ---
EXAM: XR CHEST, 2 VIEWS CLINICAL INDICATION: cough cough TECHNIQUE: Frontal and lateral views of the chest. This report was created using [employer] report generation technology. COMPARISON: CTA chest 12/24/2021. FINDINGS: LUNGS AND PLEURAL SPACES: Unremarkable. No consolidation or edema. No pneumothorax. No effusion. HEART: Unremarkable. Cardiac silhouette not enlarged. MEDIASTINUM: Central airways and mediastinal contour are unremarkable. BONES/JOINTS: Unremarkable. SOFT TISSUES: Unremarkable. RAD/Chest PA and Lateral IMPRESSION: No radiographic evidence of acute cardiopulmonary disease. Electronically Signed: Chandan Katz MD at 7:08 EDT ,
--- NOTE | 2022-06-22 07:46 | EDS_ITS ---
HPI History of Present Illness Chief Complaint: Cough Narrative Narrative: Patient is a 21-year-old female with past medical history of bipolar disorder and PTSD. She states over the past 2 to 3 days she has had nasal congestion and drainage and cough. She states that she feels short of breath with this and is concerned that she may have pneumonia and therefore comes in for evaluation. [facility] Medical History Alcohol use Anxiety and depression Asthma Back pain Bipolar 1 disorder, depressed Blood disorder COVID-19 Easy bruising Excessive bleeding History of renal disease Injury of head and neck Leg cramps Low iron Marijuana use Migraine headache Non-smoker Ovarian cyst PTSD (post-traumatic stress disorder) Pyelonephritis Seizures Syncope Home Medications propranolol 10 mg tablet 10 mg PO TID #30 tabs 01/14/22 [Rx Last Taken Unknown] black cohosh 20 mg tablet 20 mg PO DAILY 02/03/22 [History Last Taken Unknown] quetiapine 50 mg tablet See Rx Instructions PO QHS #15 tabs 02/03/22 [Rx Last Taken Unknown] albuterol sulfate 90 mcg/actuation aerosol inhaler (Ventolin HFA) 1 - 2 puff inhalation Q4H PRN PRN Wheezing #1 device 06/22/22 [Rx Last Taken Unknown] azelastine 137 mcg (0.1 %) nasal spray aerosol 2 spray intranasal BID #30 mL 06/22/22 [Rx Last Taken Unknown] benzonatate 200 mg capsule 200 mg PO TID PRN cough #30 caps 06/22/22 [Rx Last Taken Unknown] ondansetron 4 mg disintegrating tablet 4 mg PO TID PRN nausea and vomiting #21 tabs 06/22/22 [Rx Last Taken Unknown] prednisone 20 mg tablet 40 mg PO DAILY 5 days #10 tabs 06/22/22 [Rx Last Taken Unknown] Allergy/AdvReac Type Severity Reaction Status Date / Time morphine Allergy Hives Verified 06/22/22 06:14 ketorolac [From Toradol] AdvReac Vomiting Verified 06/22/22 06:14 Surgical History History of surgery (~12/22/21) History of tonsillectomy and adenoidectomy Hx of shoulder surgery Social History (Reviewed 02/03/22 @ 10:59 by Deana Melendrez Smoking Status: Never smoker alcohol intake: never substance use type: marijuana ROS ROS ED Constitutional Constitutional ED: Denies chills or fever(s) ENT ENT ED: Reports rhinorrhea and sore throat; Denies ear pain Cardiovascular Cardiovascular: Denies chest pain Respiratory/Chest Respiratory/Chest: Reports cough and dyspnea Gastrointestinal Gastrointestinal: Denies abdominal pain, diarrhea, nausea or vomiting Genitourinary Genitourinary ED: Denies dysuria Musculoskeletal Musculoskeletal: Reports myalgias Integumentary Denies rash Neurologic Neurologic: Reports headache(s) Hematologic/Lymphatic Hematologic/Lymphatic: Denies easy bleeding or easy bruising EXAM Physical Exam Const Vital Signs: 06/22/22 06:10 Temperature 98.2 F Temperature Source Temporal Pulse Rate 102 H Respiratory Rate 18 Blood Pressure 123/78 H Blood Pressure Mean 93 Pulse Ox 96 Oxygen Delivery Method Room Air Positive well nourished and well developed General Appearance ED: well developed HEENT HEENT Narrative: Nasal mucosa is hyperemic and boggy with enlarged inferior nasal turbinate. There is cobblestoning the posterior pharynx consistent with sinus drainage but no airway edema or compromise Bilateral TMs are retracted consistent with eustachian tube dysfunction but show no signs of infection Eyes PERRL and EOMs intact bilaterally Neck supple Neck Narrative: Positive anterior cervical lymphadenopathy No nuchal rigidity or meningeal signs noted Resp normal respiratory effort and clear to auscultation bilaterally Resp Narrative: No nasal flaring retractions stridor or accessory muscle use Cardio regular rate and regular rhythm Extremity normal to inspection Extremity Narrative: No asymmetric edema no pitting edema negative Homans' sign bilaterally Neuro oriented x3 and CN's II-XII intact bilaterally Sensorium / Orientation: alert Psych mental status grossly normal Skin no rashes or lesions noted MDM MDM MDM Narrative Medical decision making narrative: Patient presented to the ER afebrile and in no acute respiratory distress. Her constellation of symptoms are most consistent with a viral upper respiratory infection. Differential includes COVID versus influenza versus pneumonia. At this time she is not distressed and she is not requiring supplemental oxygen so I felt only need for a COVID/flu swab and chest x-ray. Viral swabs were negative and chest x-ray revealed no acute lung pathology. Therefore at this time there is no need for further work-up as patient does not have signs of respiratory distress or need for supplemental oxygen and she can be given symptomatic medications and discharged home History & Record Review Discussion w/independent historian: Patient and Significant other Radiography Diagnostic Testing: Clinical Impression(s) from Imaging Studies Chest X-Ray 06/22/22 06:50 IMPRESSION: No radiographic evidence of acute cardiopulmonary disease. Electronically Signed: Chandan Katz MD at 7:08 EDT Reading Location ID and State: [facility] / [place] , Service support , Chest x-ray as interpreted by the emergency medicine physician reveals no acute infiltrate pneumothorax or pleural effusion Discharge Plan Triage Chief Complaint: Cough ED Provider: Chacho Ramirez Dx/Rx/DC Orders Clinical Impression: Acute upper respiratory infection Instructions: ED URI, Viral, No Abx (Adult) Prescriptions: New prednisone 20 mg tablet 40 mg PO DAILY 5 Days Qty: 10 0RF azelastine 137 mcg (0.1 %) aerosol,spray 2 spray intranasal BID Qty: 30 0RF Rx Instructions: administer into each nostril ondansetron 4 mg tablet,disintegrating 4 mg PO TID PRN (Reason: nausea and vomiting) Qty: 21 0RF benzonatate 200 mg capsule 200 mg PO TID PRN (Reason: cough) Qty: 30 0RF albuterol sulfate [Ventolin HFA] 90 mcg/actuation HFA aerosol inhaler 1 - 2 puff inhalation Q4H PRN PRN (Reason: Wheezing) Qty: 1 1RF No Action black cohosh 20 mg tablet 20 mg PO DAILY quetiapine 50 mg tablet See Rx Instructions PO QHS Qty: 15 0RF Rx Instructions: 25 orally at bedtime for 14 days; then 50 orally at bedtime propranolol 10 mg tablet 10 mg PO TID Qty: 30 0RF Primary Care Provider: Samuel Howell Referrals: Samuel Howell MD [Primary Care Provider] - Activity Restrictions/Additional Instructions: Your work-up indicates you have a viral upper respiratory tract infection which will last approximately 2 to 3 weeks. Take the medication prescribed as di rected to help control your symptoms and return to the ER should you have any further concerns Disposition Disposition: Home, Self Care Discharge Date/Time: 06/22/22 07:55
== END 2022-06-22 07:55 | disposition home or self-care (01) ==
PROVIDERS: Emergency Provider Emergency Medicine; PCP Family Medicine; Visit Provider Emergency Medicine
DX: J06.9 Acute upper respiratory infection, unspecified (principal); F31.9 Bipolar disorder, unspecified; F43.10 Post-traumatic stress disorder, unspecified; Z79.52 Long term (current) use of systemic steroids; Z20.822 Contact with and (suspected) exposure to COVID-19
CPT/HCPCS: 71046; 87428; 99283

== ENCOUNTER 2023-03-02 22:24 | Emergency (ER) | payer OTHER, MEDICAID, SELFPAY ==
[2023-03-02 22:25] VITALS: BP 140/96; PULSE 101; RESP 18; TEMP 37; O2SAT 99; BMI 19.1
[2023-03-02 23:18] VITALS: O2SAT 100
--- NOTE | 2023-03-02 23:43 | RAD_ITS ---
EXAM: XR CHEST, 2 VIEWS CLINICAL INDICATION: dyspnea TECHNIQUE: Frontal and lateral views of the chest. COMPARISON: June 23, 2022. FINDINGS: LUNGS AND PLEURAL SPACES: Unremarkable. No consolidation or edema. No pneumothorax. No effusion. HEART: Unremarkable. Cardiac silhouette not enlarged. MEDIASTINUM: Central airways and mediastinal contour are unremarkable. BONES/JOINTS: Unremarkable. No acute fracture. SOFT TISSUES: Unremarkable. RAD/Chest PA and Lateral IMPRESSION: No radiographic evidence of acute cardiopulmonary disease. Electronically Signed: Shey Thompson MD at 1:00 EST ,
[2023-03-03] LABS: D-Dimer Quantitative (DVT/PE) < 0.27 FEU/ug/m (0.27-0.49)
[2023-03-03 00:03] LABS: Internal QC Validated? YES +Cl - CLEAR BKGD; Pregnancy, Serum, hCG Quali. NEGATIVE Negative
[2023-03-03 00:05] LABS: Anion Gap 8 (5-15); BUN 13 mg/dL (7-18); BUN/Creat Ratio 17.2 RATIO (10-20); Calcium,Total 9.4 mg/dL (8.5-10.1); Chloride 108 mmol/L (98-107); Creatinine, Serum 0.76 mg/dL (0.55-1.02); EST Glomerular Filtration Rate 103 mL/min (>60); Est Glom Filt Rate - Afr Amer 124 mL/min (>60); Estimated Creatinine Clearance 87.45 ml/min; Glucose 99 mg/dL (74-106); Sodium Level 138 mmol/L (136-145)
[2023-03-03 00:19] LABS: Absolute Lymphocyte Count 2.54 X10^3/uL (0.83-4.51); Absolute Neutrophil Count 3.8 X10^3/uL (2.0-7.7); Basophil# 0.06 X10^3/uL; Basophil% 0.8 % (0-1); Eosinophil# 0.04 X10^3/uL; Eosinophils% 0.6 % (0-5); Hematocrit 42.3 % (37-47); Hemoglobin 14.4 g/dL (12.0-15.0); Lymphocyte # 2.54 X10^3/ul (0.83-4.51); Lymphocyte % 35.7 % (19-41); Mean Corpuscular Hgb 28.8 pg (27.0-32.0); Mean Corpuscular Volume 84.6 fL (81-99); Mean Platelet Vol. 10.5 fl (6.2-12.0); Monocyte# 0.61 X10^3/uL; Monocyte% 8.6 % (0-10); NRBC Flagged by Analyzer 0 % (0-5); Neutrophil # 3.84 X10^3/uL (2.7-7.7); Platelet Count 264 K/mm3 (150-450); White Blood Count 7.1 K/mm3 (4.4-11.0)
--- NOTE | 2023-03-03 00:46 | EX.ED.DYSGE1 ---
HPI History of Present Illness Chief Complaint: Shortness of Breath Informant: patient and friend Narrative Narrative: Patient is a 22-year-old female with past medical history of bipolar disorder and PTSD. She states that roughly 1 month ago she was started on lamotrigine. She states since being on it she will have intermittent bouts where she feels her heart races and she feels short of breath. She states that today roughly 2 hours prior to arrival she fell like she was gurgling. She states she tried her home inhaler and nebulizer with minimal symptom improvement and with concern that there was something developing within her lungs comes in for evaluation. [facility] Medical History Alcohol use Anxiety and depression Asthma Back pain Bipolar 1 disorder, depressed Blood disorder COVID-19 Easy bruising Excessive bleeding History of renal disease Injury of head and neck Leg cramps Low iron Marijuana use Migraine headache Non-smoker Ovarian cyst PTSD (post-traumatic stress disorder) Pyelonephritis Seizures Syncope Home Medications lamotrigine 25 mg tablet 25 mg PO ONCE #98 tabs 01/21/23 [Rx Last Taken Unknown] lamotrigine 100 mg tablet See Rx Instructions PO DAILY #30 tabs 02/09/23 [Rx Last Taken Unknown] potassium chloride 10 mEq capsule,extended release 10 meq PO DAILY 7 days #7 caps 03/03/23 [Rx Last Taken Unknown] Allergy/AdvReac Type Severity Reaction Status Date / Time morphine Allergy Hives Verified 03/02/23 22:24 ketorolac [From Toradol] AdvReac Vomiting Verified 03/02/23 22:24 Surgical History History of surgery (~12/22/21) History of tonsillectomy and adenoidectomy Hx of shoulder surgery Social History Smoking Status: Never smoker alcohol intake: never substance use type: marijuana ROS ROS ED Constitutional Constitutional ED: Denies chills or fever(s) ENT ENT ED: Denies sore throat Cardiovascular Cardiovascular: Reports racing heartbeat; Denies chest pain or palpitations Respiratory/Chest Respiratory/Chest: Reports dyspnea; Denies cough Gastrointestinal Gastrointestinal: Denies abdominal pain, diarrhea, nausea or vomiting Genitourinary Genitourinary ED: Denies dysuria Musculoskeletal Musculoskeletal: Denies myalgias Integumentary Denies rash Neurologic Neurologic: Denies headache(s) Hematologic/Lymphatic Hematologic/Lymphatic: Denies easy bleeding or easy bruising EXAM Physical Exam Const Vital Signs: 03/02/23 22:25 03/02/23 23:18 Temperature 98.6 F Temperature Source Temporal Pulse Rate 101 H Respiratory Rate 18 Respiratory Effort Normal Respiratory Depth Normal Respiratory Pattern Normal Blood Pressure 140/96 H Blood Pressure Mean 110 Pulse Ox 99 Oxygen Delivery Method Room Air Positive well nourished and well developed General Appearance ED: well developed; Negative for pallor HEENT Reports moist mucous membranes HEENT Narrative: No tongue or lip swelling no oral lesions no airway edema or compromise Eyes PERRL and EOMs intact bilaterally General Eye ED: Negative for pale conjunctiva or scleral icterus Neck supple and no JVD Resp normal respiratory effort and clear to auscultation bilaterally Resp Narrative: No nasal flaring retractions tachypnea stridor or accessory muscle use Cardio regular rate and regular rhythm Rate: other Other Details: Heart is regular rate and rhythm without murmurs rubs or gallop Radial and carotid pulses are equal and symmetric Extremity normal to inspection Extremity Narrative: No asymmetric edema no pitting edema negative Homans' sign bilaterally Neuro oriented x3, CN's II-XII intact bilaterally and no sensory deficits noted Sensorium / Orientation: alert Motor Exam: strength 5/5 throughout Psych mental status grossly normal Skin no rashes or lesions noted General Skin Exam: Negative for jaundice or pallor MDM MDM MDM Narrative Medical decision making narrative: Patient presented to the ER in no acute respiratory distress. She reported intermittent sensations of difficulty breathing and heart racing ever since starting lamotrigine. Differential diagnosis is for medication side effect/adverse medication reaction versus lung disorder such as pneumonia pneumothorax pleural effusion or pulmonary embolus. There is also concern for acute blood loss anemia electrolyte derangement or cardiac dysrhythmia. Secondary to this I elected to perform basic blood work as well as EKG and chest x-ray. Labs showed mildly diminished potassium at 3.0. Otherwise there is no clinically significant laboratory findings. EKG was sinus rhythm and chest x-ray revealed no acute lung pathology. On reevaluation the patient is resting comfortably her pulse ox remains 98 to 100% on room air and therefore with overall negative workup I do not feel there is need for further evaluation and this is most likely adverse medication reaction. Patient was advised to discuss this with her doctor who is appointment she has on and she will be given 1 week of potassium supplementation to replace her mildly low potassium at this time. History & Record Review Discussion w/independent historian: Patient Lab Data Attestation: I reviewed the patient's lab results. Labs: Laboratory Results - last 24 hr 03/02/23 23:30 WBC 7.1 RBC 5.00 Hgb 14.4 Hct 42.3 MCV 84.6 MCH 28.8 MCHC 34.0 RDW Std Deviation 40.0 RDW Coeff of Rene 13.0 Plt Count 264 MPV 10.5 Immature Gran % (Auto) 0.300 Neut % (Auto) 54.0 Lymph % (Auto) 35.7 [place] % (Auto) 8.6 Eos % (Auto) 0.6 Baso % (Auto) 0.8 Absolute Neuts (auto) 3.8 Absolute Lymphs (auto) 2.54 Nucleated RBC % 0 D-Dimer Quant (PE/DVT) < 0.27 L Sodium 138 Potassium 3.0 L Chloride 108 H Carbon Dioxide 22.0 Anion Gap 8 BUN 13 Creatinine 0.76 Estim Creat Clear Calc 87.45 Est GFR (MDRD) Af Amer 124 Est GFR (MDRD) Non-Af 103 BUN/Creatinine Ratio 17.2 Glucose 99 Calcium 9.4 Magnesium 2.0 TSH 2.30 Serum , Qual NEGATIVE Radiography Diagnostic Testin view chest x-ray as interpreted by the emergency medicine physician reveals no acute infiltrate pneumothorax or pleural effusion Discharge Plan Triage Chief Complaint: Shortness of Breath ED Provider: Chacho Ramirez Dx/Rx/DC Orders Clinical Impression: Dyspnea, Adverse drug reaction, Hypokalemia Instructions: ED Dyspnea, ED Hypokalemia Prescriptions: New potassium chloride 10 mEq capsule, extended release 10 meq PO DAILY 7 Days Qty: 7 0RF No Action lamotrigine 25 mg tablet 25 mg PO ONCE Qty: 98 0RF lamotrigine 100 mg tablet See Rx Instructions PO DAILY Qty: 30 0RF Rx Instructions: 50 mg orally daily for 7 days; then 100 mg orally daily Primary Care Provider: Samuel Howell Referrals: Samuel Howell MD [Primary Care Provider] - Activity Restrictions/Additional Instructions: Please talk to your doctor about changing or stopping your lamotrigine as workup today indicates that your symptoms are most likely an adverse reaction to this medication. Your potassium was slightly low today therefore take 1 pill a day for the next week as prescribed to bring this into the normal range. Please return to the ER should you have any further concerns Disposition Disposition: Home, Self Care
[2023-03-03 00:54] VITALS: BP 118/86; PULSE 89; RESP 16; O2SAT 99
== END 2023-03-03 00:55 | disposition home or self-care (01) ==
PROVIDERS: Emergency Provider Emergency Medicine; PCP Family Medicine; Visit Provider Emergency Medicine
DX: R06.02 Shortness of breath (principal); F31.9 Bipolar disorder, unspecified; E87.6 Hypokalemia; T42.6X5A Adverse effect of other antiepileptic and sedative-hypnotic drugs, initial encounter; F43.10 Post-traumatic stress disorder, unspecified; J45.909 Unspecified asthma, uncomplicated
CPT/HCPCS: 71046; 80048; 83735; 84443; 84703; 85025; 85379; 93005; 99282; A4216

== ENCOUNTER 2023-12-01 13:52 | Inpatient (IN) | payer OTHER, MEDICAID, SELFPAY ==
[2023-12-01] VITALS (8 sets, daily range): BP systolic 98–110; BP diastolic 48–93; PULSE 61–122; RESP 14–19; TEMP 36.1–37.3; O2SAT 94–100; BMI 20.6; BMI 20.9
--- NOTE | 2023-12-01 14:30 | EX.ED.DYSGE1 ---
HPI History of Present Illness Chief Complaint: Flank Pain Detail of Chief Complaint: Right flank pain Informant: patient Narrative Narrative: Patient presents the emergency department with complaint of right-sided flank pain that started around 230 this morning. Patient states that she had a couple episodes of vomiting last evening before going to bed and did not think much of it thought maybe she ate something that did not agree with her. Patient woke up to urinate around 2:30 AM and fell like she needed to push to urinate and then felt a pop like something passed or released. Patient then started having a lot more pain to the right side into her right back radiating to the right front of the abdomen. Patient has noted some blood in the urine. Patient also tells me that she is thinks her last menstrual period was about October 13. She had a positive urine Prag test and states that she went to some clinic last week and they did an ultrasound but they could not see anything her heartbeat. They apparently did not do any blood work. Patient is G1, P0. Patient continues to have significant pain to the right flank and right lower abdomen. She tells me she had a low-grade temp this morning of 100.3. She has history of UTIs. She is never passed a kidney stone before. She has had some intermittent vaginal spotting since she missed her menstrual period. Currently rates her pain an 8 out of 10. [facility] Medical History Bipolar 1 disorder, depressed PTSD (post-traumatic stress disorder) Ovarian cyst Alcohol use Marijuana use History of renal disease Low iron Blood disorder Easy bruising Excessive bleeding Back pain Migraine headache Injury of head and neck Syncope Seizures Asthma Non-smoker Leg cramps Pyelonephritis COVID-19 Anxiety and depression Home Medications ?Medication ?Instructions ?Recorded ?Last Taken ?Type diclofenac sodium 50 mg 50 mg PO BID 09/15/23 Unknown History tablet,delayed release doxepin 10 mg capsule 10 mg PO QHS #30 caps 09/15/23 Unknown Rx cariprazine 1.5 mg capsule 1.5 mg PO DAILY #30 caps 11/10/23 Unknown Rx Allergy/AdvReac Type Severity Reaction Status Date / Time morphine Allergy Hives Verified 09/15/23 07:34 ketorolac (From Toradol) AdvReac Vomiting Verified 09/15/23 07:34 Surgical History S/P MCL (medial collateral ligament) repair History of repair of anterior cruciate ligament of left knee History of surgery (~12/22/21) Hx of shoulder surgery History of tonsillectomy and adenoidectomy Social History Smoking Status: Current every day smoker tobacco type: cigarettes alcohol intake: never substance use type: marijuana ROS ROS ED Review of Systems ROS Unobtainable: other Constitutional Constitutional ED: Reports fever(s) and lethargy; Denies chills, sweats or weight loss Eyes Eyes: Denies blurry vision, change in vision or diplopia ENT ENT ED: Denies rhinorrhea or sore throat Cardiovascular Cardiovascular: Denies chest pain, orthopnea or racing heartbeat Respiratory/Chest Respiratory/Chest: Denies cough, dyspnea, dyspnea on exertion, orthopnea or sputum Gastrointestinal Gastrointestinal: Reports abdominal pain, nausea and vomiting; Denies diarrhea Genitourinary Genitourinary ED: Reports hematuria and urinary frequency; Denies dysuria Musculoskeletal Musculoskeletal: Reports back pain; Denies arthralgias, myalgias or neck pain Integumentary Denies abscess, Abrasions or rash Neurologic Neurologic: Denies headache(s) or weakness Psychiatric Psychiatric: Denies anxiety, depression or suicidal thoughts Endocrine Endocrinology: Denies polydipsia, polyphagia or polyuria Hematologic/Lymphatic Hematologic/Lymphatic: Denies easy bleeding, easy bruising or lymphadenopathy Allergic/Immunologic Allergic/Immunologic ED: Denies mouth swelling, tongue swelling or urticaria EXAM Physical Exam Const Vital Signs: 12/01/23 13:53 12/01/23 14:55 12/01/23 16:48 Temperature 96.9 F L 98.3 F Temperature Source Temporal Temporal Pulse Rate 122 H 84 Respiratory Rate 16 16 Blood Pressure 107/93 H 102/66 101/62 Blood Pressure Mean 97 78 75 Pulse Ox 98 94 Oxygen Delivery Method Room Air Room Air 12/01/23 17:00 Temperature 98.2 F Temperature Source Temporal Pulse Rate 88 Respiratory Rate 14 Blood Pressure 108/88 H Blood Pressure Mean 94 Pulse Ox 96 Oxygen Delivery Method Room Air Positive well nourished and well developed General Appearance ED: well developed and NAD HEENT Reports TM's clear and moist mucous membranes normocephalic and atraumatic; Negative for trauma or tenderness Tympanic Membrane ED: Yes TM's clear Eyes PERRL and EOMs intact bilaterally General Eye ED: Negative for pale conjunctiva or scleral icterus Neck no lymphadenopathy, supple and no JVD General: Negative for tenderness Chest Wall inspection of chest normal and palpation of chest normal Chest: Negative for tenderness Resp normal respiratory effort and clear to auscultation bilaterally Effort and Inspection: Negative for respiratory distress or pain with movement Auscultation: Negative for rhonchi, wheezes or diminished lung sounds Cardio regular rate, regular rhythm, S1 normal heart sound, S2 normal heart sound and no murmurs Peripheral Pulses: pulses 2+ throughout GI normal to inspection, nondistended, normoactive bowel sounds, soft to palpation, non-distended and no masses GI Narrative: Mild tenderness over right lower quadrant with some mild guarding. There is no rebound, rigidity, or peritoneal signs. No mass palpated. Back/Spine no thoracic nor lumbar tenderness Back/Spine Narrative: Patient with CVA tenderness on the right. Extremity normal to inspection General Extremety ED: Negative for edema General Extremity: Negative for edema Neuro oriented x3, CN's II-XII intact bilaterally, no sensory deficits noted and gait normal Sensorium / Orientation: awake, alert, oriented to person, oriented to place and oriented to time Motor Exam: strength 5/5 throughout and strength abnormal Psych mental status grossly normal Skin no rashes or lesions noted and no wounds MDM MDM MDM Narrative Medical decision making narrative: Patient presents with right flank pain with history of UTIs. Patient also likely . IV line will be established. She is allergic to Toradol and morphine therefore she was given half a milligram of Dilaudid and 4 mg of Zofran IV. Will obtain basic labs including quantitative hCG and a urinalysis. In the differential would be kidney stone or UTI versus with possible ectopic. IV established. Patient was medicated with Zofran and Dilaudid initially and continued to have nausea and pain. She was given a second dose of Dilaudid and also given Reglan. CBC with differential count 9.4 with hemoglobin 14 and platelet count of 295. Chemistries unremarkable. Quantitative hCG was 22,000 752. Urinalysis showed more than 100 RBCs but no signs of infection. Patient had a pelvic ultrasound that showed a single live intrauterine measuring 6 weeks with heart rate 123. She also had ultrasound of the kidneys and noted punctate stones in the right and left kidneys without evidence of hydroureter or obstructive uropathy. While in department she continued to vomit and now is vomiting bright red blood. I gave her Protonix bolus. Discussed case with [employer] who deferred to medicine for admission. Discussed case with medicine Dr. Lemos who will admit patient. Also spoke with GI physician Dr. Noriega who recommended placing an NG to low intermittent suction. I suspect patient may have passed a kidney stone given the pain that she was having and the hematuria. Suspect she may have a [place] tear and hyperemesis gravidarum. Lab Data Attestation: I reviewed the patient's lab results. Labs: Laboratory Results - last 24 hr 12/01/23 12/01/23 14:00 14:55 WBC 9.4 RBC 4.83 Hgb 14.3 Hct 41.6 MCV 86.1 MCH 29.6 MCHC 34.4 RDW Std Deviation 40.0 RDW Coeff of Rene 12.7 Plt Count 295 MPV 10.2 Immature Gran % (Auto) 0.300 Neut % (Auto) 75.6 H Lymph % (Auto) 16.7 L [place] % (Auto) 7.0 Eos % (Auto) 0.1 Baso % (Auto) 0.3 Absolute Neuts (auto) 7.1 Absolute Lymphs (auto) 1.57 Nucleated RBC % 0 Sodium 132 L Potassium 3.4 L Chloride 101 Carbon Dioxide 22.0 Anion Gap 9 BUN 10 Creatinine 0.68 Estim Creat Clear Calc 102.64 Est GFR (MDRD) Af Amer 139 Est GFR (MDRD) Non-Af 115 BUN/Creatinine Ratio 14.7 Glucose 75 Calcium 9.9 Total Bilirubin 1.10 H AST 9 L ALT 13 Alkaline Phosphatase 66 Total Protein 8.6 H Albumin 4.8 Globulin 3.8 Albumin/Globulin Ratio 1.3 HCG, Quant 18407 H Urine Color Yellow Urine Clarity Sl. Cloudy Urine pH 6.0 Ur Specific [place] 1.025 Urine Protein 30 H Urine Glucose (UA) Normal Urine Ketones 150 A* Urine Occult Blood 250 H Urine Nitrite Negative Urine Bilirubin Negative Urine Urobilinogen 1 H Ur Leukocyte Esterase 25 H Urine RBC > 100 SEEN Urine WBC 0-5 SEEN Ur Squamous Epith Cells 0-5 SEEN Urine Bacteria 0 SEEN Urine Mucus 0 SEEN Radiography Diagnostic Testing: Clinical Impression(s) from Imaging Studies Obstetrics Ultrasound 12/01/23 15:38 IMPRESSION: Single live intrauterine . Estimated gestational age is 6 weeks and 3 days. Electronically Signed: Trevor Diggs MD at 17:09 EDT , Renal Ultrasound 12/01/23 15:39 IMPRESSION: Bilateral nonobstructive nephrolithiasis as described above. No hydronephrosis. Electronically Signed: Trevor Diggs MD at 17:08 EDT , Discharge Plan Triage Chief Complaint: Flank Pain ED Provider: Lisandra Cronin Dx/Rx/DC Orders Clinical Impression: Acute upper GI bleed, Intractable vomiting, First trimester Prescriptions: No Action diclofenac sodium 50 mg tablet,delayed release (DR/EC) 50 mg PO BID doxepin 10 mg capsule 10 mg PO QHS Qty: 30 2RF cariprazine 1.5 mg capsule 1.5 mg PO DAILY Qty: 30 0RF Primary Care Provider: Samuel Howell Referrals: Samuel Howell MD [Primary Care Provider] - Print Language: Upper Sorbian Disposition Disposition: [facility]
[2023-12-01 14:47] LABS: Absolute Lymphocyte Count 1.57 X10^3/uL (0.83-4.51); Absolute Neutrophil Count 7.1 X10^3/uL (2.0-7.7); Basophil# 0.03 X10^3/uL; Basophil% 0.3 % (0-1); Eosinophil# 0.01 X10^3/uL; Eosinophils% 0.1 % (0-5); Hematocrit 41.6 % (37-47); Hemoglobin 14.3 g/dL (12.0-15.0); Lymphocyte # 1.57 X10^3/ul (0.83-4.51); Lymphocyte % 16.7 % (19-41); Mean Corp Hgb Conc 34.4 g/dL (32-36); Mean Corpuscular Hgb 29.6 pg (27.0-32.0); Mean Corpuscular Volume 86.1 fL (81-99); Mean Platelet Vol. 10.2 fl (6.2-12.0); Monocyte# 0.66 X10^3/uL; NRBC Flagged by Analyzer 0 % (0-5); Neutrophil % 75.6 % (47-70); Platelet Count 295 K/mm3 (150-450); RBC Distribution Width CV 12.7 % (11.6-14.6); Red Blood Count 4.83 M/mm3 (4.2-5.4); White Blood Count 9.4 K/mm3 (4.4-11.0)
[2023-12-01] MEDS: Ondansetron 4 MG/2 ML Vial IV (14:50)
[2023-12-01] MEDS: HYDROmorphone 1 MG/ML Syringe 0.5 MG IV (14:50)
[2023-12-01 14:58] LABS: ALB/GLOB Ratio 1.3 RATIO (0.9-2.4); AST(SGOT) 9 U/L (15-37); Alanine Aminotransfer ALT/SGPT 13 U/L (13-56); Albumin, Serum 4.8 g/dL (3.2-5.0); Alkaline Phosphatase 66 U/L (45-117); Anion Gap 9 (5-15); BUN 10 mg/dL (7-18); BUN/Creat Ratio 14.7 RATIO (10-20); Calcium,Total 9.9 mg/dL (8.5-10.1); Chloride 101 mmol/L (98-107); Creatinine, Serum 0.68 mg/dL (0.55-1.02); EST Glomerular Filtration Rate 115 mL/min (>60); Est Glom Filt Rate - Afr Amer 139 mL/min (>60); Estimated Creatinine Clearance 102.64 ml/min; Globulin 3.8 g/dL (2.2-4.2); Glucose 75 mg/dL (74-106); Potassium 3.4 mmol/L (3.5-5.1); Protein, Total 8.6 g/dL (6.4-8.2); Sodium Level 132 mmol/L (136-145)
[2023-12-01 15:00] LABS: Bacteria 0 SEEN /hpf (None Seen); Mucous, Urine 0 SEEN /hpf (<or=2+)
[2023-12-01] MEDS: 0.9% Normal Saline (1000mL) 1,000 ML 150 ML IV ×2 (15:00→20:41)
[2023-12-01 15:05] LABS: Color, Urine Yellow (Yellow); Glucose, Dipstick Normal (Normal); Leukocyte Esterase-Dipstick 25 /ul (Negative); Nitrite-Dipstick Negative (Negative); Occult Blood-Urine 250 /ul (Negative); Protein-Dipstick 30 mg/dl (Negative); Specific Gravity, Urine 1.025 (1.002-1.030); Urine Bilirubin Dipstick Negative (Negative); Urine Clarity Sl. Cloudy (Clear); Urine Urobilinogen 1 mg/dl (Normal)
[2023-12-01 15:08] LABS: Ketone-Dipstick 150 mg/dl (Negative)
[2023-12-01 15:12] LABS: Red Blood Cells-Urine > 100 SEEN /hpf (0-5)
[2023-12-01 15:13] LABS: Squamous Epithelial Cells - UA 0-5 SEEN /hpf (5-10); White Blood Cells 0-5 SEEN /hpf (0-5)
[2023-12-01 15:15] LABS: hCG Titer Quant., Serum 22752 mIU/mL (1-3)
--- NOTE | 2023-12-01 15:38 | US_ITS ---
INDICATION: right flank pain, hematuria, EXAMINATION: US OB Transvaginal TECHNIQUE: Transabdominal pelvic ultrasound was performed. Grayscale, spectral waveform, and color flow Doppler evaluation of the adnexa. COMPARISON: None. FINDINGS: UTERUS: Measures 9.3 cm in length.. RIGHT OVARY: Measures 4.1 x 2.2 x 3 cm. Normal. LEFT OVARY: Measures 3.1 x 1.6 x 2.5 cm. Normal. FREE FLUID: None. INTRAUTERINE GESTATIONAL SAC(s) (size/shape): Single. YOLK SAC: Identified POLE: Identified CRL 0.5 cm. ESTIMATED GESTATION AGE: 6 weeks and 3 days. HEART MOTION: 123 bpm. PLACENTA: Not visualized due to age. SUBCHORIONIC HEMORRHAGE: None. AMNIOTIC FLUID: Qualitatively normal. US/Transvaginal w/Preg US IMPRESSION: Single live intrauterine . Estimated gestational age is 6 weeks and 3 days. Electronically Signed: Trevor Diggs MD at 17:09 EDT ,
--- NOTE | 2023-12-01 15:39 | US_ITS ---
INDICATION: hematuria, ro kidney stone EXAMINATION: Ultrasound US Kidney(s) complete (eg, kidneys and bladder) TECHNIQUE: Bueno scale and color doppler images were obtained of the kidneys. COMPARISON: None. FINDINGS: RIGHT KIDNEY: Measures 10.4 cm in length.. There is no hydronephrosis. No focal lesion or perinephric collection is demonstrated. There is a 2 mm nonobstructing stone in the right midpole. LEFT KIDNEY: Measures 9.9 cm in length.. There is no hydronephrosis. No focal lesion or perinephric collection is demonstrated. There is a 4 mm nonobstructing stone in the left midpole. URINARY BLADDER: No acute abnormality. US/Kidney and Bladder IMPRESSION: Bilateral nonobstructive nephrolithiasis as described above. No hydronephrosis. Electronically Signed: Trevor Diggs MD at 17:08 EDT ,
[2023-12-01] MEDS: Metoclopramide 10 MG/2 ML Vial 5 MG IV ×2 (16:41→20:10)
[2023-12-01] MEDS: HYDROmorphone 1 MG/ML Syringe IV ×2 (16:41→21:26)
[2023-12-01] MEDS: Pantoprazole Sodium 80 MG in 0.9% Normal Saline (50mL Bag) 15 ML 420 MG IV BOLUS (16:42)
--- NOTE | 2023-12-01 17:37 | HP.PCM.HOS_ITS ---
[facility] - [facility] General Date of Service: 12/01/23 Chief Complaint: right flank pain HPI Narrative AMI TORRES, is a 23 F with a PMH of bipolar disorder who presents with a complaint of nausea and vomiting which started early on the morning of admission. She says her LMP was in September 2023 and she subsequently had a positive test. She came in today because she had started having several episodes of nausea and vomiting. She says she had eaten something that did not agree with her but subsequently noted that the nausea and vomiting was persistent. She also initially denied any urinary symptoms but said she went to urinate in the early hours of the morning and felt like she needed to strain to urinate. She started having pain on the right flank radiating to her right back and also noted some blood in her urine. She denied any fever or chills. Her vomiting worsening subsequently had blood in her emesis as well. She therefore came into the ED. She also admitted to a low-grade fever on the morning of admission. She denied any history of kidney stones. Review of symptoms otherwise negative. Vitals in the ED were blood pressure 108/88, pulse rate of 88, respiratory to 14 and temp of 90.2 Fahrenheit. She was saturating at 96% on room air. CBC was unremarkable and WBC was not elevated. Chemistry was significant for potassium of 3.4 and sodium of 132. Creatinine was only 0.68 and bicarb was 22. Total bilirubin was minimally elevated at 1.1. Serum beta-hCG was markedly elevated at 22,552 consistent with her being . Urinalysis showed more than 100 RBC and 0 bacteria and 0-5 WBC. She had a renal USG done in the ED which showed bilateral nonobstructive nephrolithiasis and no hydronephrosis. Obstetric ultrasound showed single live intrauterine with estimated gestational age of 6 weeks and 3 days. The ED doctor discussed with obstetrics who stated that there was nothing they were going to do for the patient at this stage of early . ED doctor also discussed with gastro and neurology in light of incessant nausea and vomiting with some bloody emesis and GI recommended the patient have an NG tube inserted. This was ordered by the ED doctor. She has been admitted to be managed for incessant nausea and vomiting which may be related to the early . [facility] Medical History Bipolar 1 disorder, depressed PTSD (post-traumatic stress disorder) Ovarian cyst Alcohol use Marijuana use History of renal disease Low iron Blood disorder Easy bruising Excessive bleeding Back pain Migraine headache Injury of head and neck Syncope Seizures Asthma Non-smoker Leg cramps Pyelonephritis COVID-19 Anxiety and depression Home Medications ?Medication ?Instructions ?Recorded ?Last Taken ?Type diclofenac sodium 50 mg 50 mg PO BID 09/15/23 Unknown History tablet,delayed release doxepin 10 mg capsule 10 mg PO QHS #30 caps 09/15/23 Unknown Rx cariprazine 1.5 mg capsule 1.5 mg PO DAILY #30 caps 11/10/23 Unknown Rx Allergy/AdvReac Type Severity Reaction Status Date / Time morphine Allergy Hives Verified 09/15/23 07:34 ketorolac (From Toradol) AdvReac Vomiting Verified 09/15/23 07:34 Surgical History S/P MCL (medial collateral ligament) repair History of repair of anterior cruciate ligament of left knee History of surgery (~12/22/21) Hx of shoulder surgery History of tonsillectomy and adenoidectomy Social History Smoking Status: Current every day smoker tobacco type: cigarettes alcohol intake: never substance use type: marijuana ROS Constitutional Constitutional: Reports anorexia, fatigue, fever(s), malaise and weakness; Denies chills Eyes Eyes: Denies change in vision ENT HEENT: Denies dysphagia or headache(s) Cardiovascular Cardiovascular: Denies dyspnea on exertion, edema, lightheadedness, orthopnea, palpitations, paroxysmal nocturnal dyspnea, rapid heart rate or syncope Respiratory/Chest Respiratory/Chest: Denies cough, dyspnea, productive cough, shortness of breath at rest or shortness of breath with exertion Gastrointestinal Gastrointestinal: Reports abdominal pain, hematemesis, nausea and vomiting; Denies coffee ground emesis, constipation, diarrhea, dyspepsia, hematochezia, loose stools or melena Genitourinary Genitourinary: Reports difficulty urinating; Denies burning urination, dysuria or urinary hesitancy Musculoskeletal Musculoskeletal: Denies arthralgias or back pain Neurologic Neurologic: Denies confusion, dizziness, focal weakness, headache(s), numbness, seizures or syncope Psychiatric Psychiatric: Denies anxiety or depression Endocrine Endocrinology: Denies change in body appearance Vital Signs Vital Signs Vital Signs: 12/01/23 13:53 12/01/23 14:55 12/01/23 16:48 Temperature 96.9 F L 98.3 F Temperature Source Temporal Temporal Pulse Rate 122 H 84 Respiratory Rate 16 16 Blood Pressure 107/93 H 102/66 101/62 Blood Pressure Mean 97 78 75 Pulse Ox 98 94 Oxygen Delivery Method Room Air Room Air 12/01/23 17:00 Temperature 98.2 F Temperature Source Temporal Pulse Rate 88 Respiratory Rate 14 Blood Pressure 108/88 H Blood Pressure Mean 94 Pulse Ox 96 Oxygen Delivery Method Room Air Weight Weight: 112 lb 12.8 oz Body Mass Index (BMI) 20.6 Physical Exam Const alert, oriented x3 and no apparent distress General Appearance: cooperative HEENT normocephalic and head/scalp atraumatic HEENT Narrative: dry oral mucosa Eyes PERRL, EOMs intact bilaterally and conjunctivae normal Neck no lymphadenopathy and supple Resp normal respiratory effort, no retractions, no use of accessory muscles and clear to auscultation bilaterally Cardio regular rate, regular rhythm, S1 normal heart sound, S2 normal heart sound and no murmurs GI normal to inspection, nondistended, normoactive bowel sounds, soft to palpation, non-tender and non-distended Extremity normal to inspection, full ROM and no clubbing, cyanosis or edema Neuro oriented x3, CN's II-XII intact bilaterally, moves all extremities and no focal motor deficits Sensorium / Orientation: awake and alert Motor Exam: strength 5/5 throughout Psych affect normal Results Lab / Micro Data 12/01/23 14:00 12/01/23 14:00 Labs: Laboratory Results - last 24 hr 12/01/23 14:00: WBC 9.4, RBC 4.83, Hgb 14.3, Hct 41.6, MCV 86.1, MCH 29.6, MCHC 34.4, RDW Std Deviation 40.0, RDW Coeff of Rene 12.7, Plt Count 295, MPV 10.2, Immature Gran % (Auto) 0.300, Neut % (Auto) 75.6 H, Lymph % (Auto) 16.7 L, [place] % (Auto) 7.0, Eos % (Auto) 0.1, Baso % (Auto) 0.3, Absolute Neuts (auto) 7.1, Absolute Lymphs (auto) 1.57, Nucleated RBC % 0, Sodium 132 L, Potassium 3.4 L, Chloride 101, Carbon Dioxide 22.0, Anion Gap 9, BUN 10, Creatinine 0.68, Estim Creat Clear Calc 102.64, Est GFR (MDRD) Af Amer 139, Est GFR (MDRD) Non-Af 115, BUN/Creatinine Ratio 14.7, Glucose 75, Calcium 9.9, Total Bilirubin 1.10 H, AST 9 L, ALT 13, Alkaline Phosphatase 66, Total Protein 8.6 H, Albumin 4.8, Globulin 3.8, Albumin/Globulin Ratio 1.3, HCG, Quant 55030 H 12/01/23 14:55: Urine Color Yellow, Urine Clarity Sl. Cloudy, Urine pH 6.0, Ur Specific [place] 1.025, Urine Protein 30 H, Urine Glucose (UA) Normal, Urine Ketones 150 A*, Urine Occult Blood 250 H, Urine Nitrite Negative, Urine Bilirubin Negative, Urine Urobilinogen 1 H, Ur Leukocyte Esterase 25 H, Urine RBC > 100 SEEN, Urine WBC 0-5 SEEN, Ur Squamous Epith Cells 0-5 SEEN, Urine Bacteria 0 SEEN, Urine Mucus 0 SEEN Imaging Radiology Impression Obstetrics Ultrasound 12/01/23 15:38 IMPRESSION: Single live intrauterine . Estimated gestational age is 6 weeks and 3 days. Electronically Signed: Trevor Diggs MD at 17:09 EDT , Renal Ultrasound 12/01/23 15:39 IMPRESSION: Bilateral nonobstructive nephrolithiasis as described above. No hydronephrosis. Electronically Signed: Trevor Diggs MD at 17:08 EDT , Assessment & Plan Assessment/Plan (1) Intractable nausea and vomiting: PLAN: Plan #Intractable nausea and vomiting in the setting of early * Patient admitted with a complaint of abdominal pain and incessant nausea and vomiting. * Urinalysis showed elevated RBC but no WBC or leukocyte esterase or bacteria. * Renal ultrasound showed nonobstructing kidney stones and no evidence of pyelonephritis. * Obstetrics ultrasound showed single live intrauterine with estimated session is now age of 6 weeks and 3 days. * Admit to MedSurg. * Hydrated with IV fluids. Keep NPO. IV Zofran. * IV Dilaudid as needed for pain * Consult gastroenterology due to hematemesis. It is likely she may have Isabela-Stockton tear from a substance nausea and vomiting. * GI requested NG tube insertion in the ED and this was ordered by the ED doctor. * #Probable UTI * Patient states she has had recurrent UTIs and kidney infections and this abdominal pain is similar to whenever she gets kidney infections. Her last kidney infection was about a year ago and says she is usually managed at [facility]. * Will get urine cultures and blood cultures and start on IV ceftriaxone * #Hematemesis * Am concerned patient may have a Isabela-Stockton tear due to her excessive vomiting with resultant hematemesis. Patient currently NPO. GI requested NG tube insertion. This was inserted with patient subsequently requested for it to be taken out because she cannot tolerated. * Hold off on pantoprazole due to possible risk of teratogenicity. * IV Zofran as needed. Gastroenterology consulted * #Early * Patient is 2 para 1. Last period was October 14, 2023. Ultrasound shows single live intrauterine with estimated gestational age of 6 weeks and 3 days. * Will need follow-up with obstetrics when she is about the first trimester. * #History of bipolar disorder: Follow-up with psychiatry on outpatient basis. Currently stable. DVT prophylaxis: SCDs Charges/Coding Visit Charges Inpatient E&M: 71030 Init Hosp L3
--- NOTE | 2023-12-01 17:55 | RAD_ITS ---
INDICATION: NG Insertion EXAMINATION/TECHNIQUE: X-RAY - XR Abdomen 1 View COMPARISON: None FINDINGS: BOWEL GAS PATTERN: Non-obstructive. NG tube is in place with tip and sidehole in the stomach. FREE AIR: Not assessed on a single supine view. ORGANOMEGALY: Not seen. CALCIFICATIONS: No abnormal calcifications observed. LOWER CHEST: No acute pathology. BONES AND SOFT TISSUES: No acute pathology. RAD/Abdomen Single View (Portable) IMPRESSION: NG tube is in place with tip and sidehole in the stomach. Electronically Signed: Trevor Diggs MD at 18:23 EDT ,
--- NOTE | 2023-12-01 19:00 | ED.RN ---
Pt. requested NG to be removed. dr. rushing and dr. gipson notified
[2023-12-01] MEDS: Famotidine 200 MG/20 ML MDV 20 MG in 0.9% Normal Saline (Pres. free 8 ML 300 MG IV (21:30)
[2023-12-01] MEDS: MELATONIN 3 MG TABLET PO (23:04)
[2023-12-02] VITALS (14 sets, daily range): BP systolic 90–110; BP diastolic 48–63; PULSE 64–83; RESP 15–19; TEMP 36.5–37.1; O2SAT 98–100
[2023-12-02] MEDS: Ondansetron 4 MG/2 ML Vial IV ×2 (00:06→10:25)
[2023-12-02] MEDS: 0.9% Normal Saline (1000mL) 1,000 ML 150 ML IV (03:40)
[2023-12-02] MEDS: HYDROmorphone 1 MG/ML Syringe IV (04:09)
[2023-12-02 07:06] LABS: Absolute Lymphocyte Count 1.69 X10^3/uL (0.83-4.51); Absolute Neutrophil Count 6.6 X10^3/uL (2.0-7.7); Basophil# 0.04 X10^3/uL; Basophil% 0.4 % (0-1); Eosinophil# 0.02 X10^3/uL; Eosinophils% 0.2 % (0-5); Hematocrit 39.6 % (37-47); Hemoglobin 13.1 g/dL (12.0-15.0); Lymphocyte # 1.69 X10^3/ul (0.83-4.51); Lymphocyte % 18.6 % (19-41); Mean Corp Hgb Conc 33.1 g/dL (32-36); Mean Corpuscular Volume 87.8 fL (81-99); Monocyte# 0.72 X10^3/uL; Monocyte% 7.9 % (0-10); NRBC Flagged by Analyzer 0 % (0-5); Neutrophil % 72.6 % (47-70); Platelet Count 268 K/mm3 (150-450); RBC Distribution Width CV 12.7 % (11.6-14.6); RBC Distribution Width SD 41.1 fl (35.1-43.9); Red Blood Count 4.51 M/mm3 (4.2-5.4); White Blood Count 9.1 K/mm3 (4.4-11.0)
--- NOTE | 2023-12-02 07:34 | PN.HOSP_ITS ---
Reason for Visit Reason for Visit: Diagnoses Nausea with vomiting, unspecified (12/01/23) Objective Data Objective Data Vital Signs: Vital Signs Temp Pulse Resp BP Pulse Ox O2 Del Method 97.9 F 70 15 108/58 L 100 Room Air 12/02/23 04:00 12/02/23 04:00 12/02/23 04:00 12/02/23 04:00 12/02/23 04:00 12/02/23 04:00 Oxygen Delivery Method Room Air Weight: 114 lb 3.191 oz Body Mass Index (BMI) 20.9 Intake & Output: Intake and Output for Last 24 Hours 11/30/23 12/01/23 12/02/23 23:59 23:59 23:59 Intake Total 897.5 / 897.5 1000 / 1000 Balance 897.5 / 897.5 1000 / 1000 Lab / Micro Data 12/02/23 06:42 12/02/23 06:42 Labs: Laboratory Results - last 24 hr 12/01/23 14:00: WBC 9.4, RBC 4.83, Hgb 14.3, Hct 41.6, MCV 86.1, MCH 29.6, MCHC 34.4, RDW Std Deviation 40.0, RDW Coeff of Rene 12.7, Plt Count 295, MPV 10.2, Immature Gran % (Auto) 0.300, Neut % (Auto) 75.6 H, Lymph % (Auto) 16.7 L, [place] % (Auto) 7.0, Eos % (Auto) 0.1, Baso % (Auto) 0.3, Absolute Neuts (auto) 7.1, Absolute Lymphs (auto) 1.57, Nucleated RBC % 0, Sodium 132 L, Potassium 3.4 L, Chloride 101, Carbon Dioxide 22.0, Anion Gap 9, BUN 10, Creatinine 0.68, Estim Creat Clear Calc 102.64, Est GFR (MDRD) Af Amer 139, Est GFR (MDRD) Non-Af 115, BUN/Creatinine Ratio 14.7, Glucose 75, Calcium 9.9, Total Bilirubin 1.10 H, AST 9 L, ALT 13, Alkaline Phosphatase 66, Total Protein 8.6 H, Albumin 4.8, Globulin 3.8, Albumin/Globulin Ratio 1.3, HCG, Quant [id number] H 12/01/23 14:55: Urine Color Yellow, Urine Clarity Sl. Cloudy, Urine pH 6.0, Ur Specific [place] 1.025, Urine Protein 30 H, Urine Glucose (UA) Normal, Urine Ketones 150 A*, Urine Occult Blood 250 H, Urine Nitrite Negative, Urine Bilirubin Negative, Urine Urobilinogen 1 H, Ur Leukocyte Esterase 25 H, Urine RBC > 100 SEEN, Urine WBC 0-5 SEEN, Ur Squamous Epith Cells 0-5 SEEN, Urine Bacteria 0 SEEN, Urine Mucus 0 SEEN 12/02/23 06:42: WBC 9.1, RBC 4.51, Hgb 13.1, Hct 39.6, MCV 87.8, MCH 29.0, MCHC 33.1, RDW Std Deviation 41.1, RDW Coeff of Rene 12.7, Plt Count 268, MPV 10.0, Immature Gran % (Auto) 0.300, Neut % (Auto) 72.6 H, Lymph % (Auto) 18.6 L, [place] % (Auto) 7.9, Eos % (Auto) 0.2, Baso % (Auto) 0.4, Absolute Neuts (auto) 6.6, Absolute Lymphs (auto) 1.69, Nucleated RBC % 0 Radiography Diagnostic Testing: Radiology Impression Obstetrics Ultrasound 12/01/23 15:38 IMPRESSION: Single live intrauterine . Estimated gestational age is 6 weeks and 3 days. Electronically Signed: Trevor Diggs MD at 17:09 EDT , Renal Ultrasound 12/01/23 15:39 IMPRESSION: Bilateral nonobstructive nephrolithiasis as described above. No hydronephrosis. Electronically Signed: Trevor Diggs MD at 17:08 EDT , KUB X-Ray 12/01/23 17:55 IMPRESSION: NG tube is in place with tip and sidehole in the stomach. Electronically Signed: Trevor Diggs MD at 18:23 EDT , Physical Exam Narrative Seen and examined. Patient went for EGD in the morning. Found to have gastric ulcer with visible vessel. She is having nausea and 1 vomiting after EGD. Mild hematemesis/blood in the emesis bag. Complain of right flank pain, or right upper quadrant and back. Denies pain in the epigastric or stomach or duodenum region. Denies history of UTI. Physical exam General: Alert, Oriented x3, Cooperative HEENT: Atraumatic, PERRLA, EOMI, Normocephalic Oral: No Gingival or Mucosal Lesions/ Ulcerations Neck: Supple, No JVD, Negative Carotid Bruits Chest wall/Lungs: Air entry diminished in bilateral lung bases. No crepitation/rhonchi Cardiovascular: Regular rate, Regular Rhythm, Normal S1, Normal S2, No M/G/R Abdomen: Bowel Sounds Present, Soft, Non Tender, Non-Distended : Single live fetus, pelvic. Mild tenderness over right flank/right lumbar region. No dysuria/increased frequency or urgency. No suprapubic tenderness. Extremities: No edema, Capillary Refill Less than 3 Seconds Skin: No rashes, No breakdown Musculoskeletal: No Tenderness to Palpation of Joints or Extremities. ROM adequate. Neurological: Cranial nerves II-XII grossly intact, DTR 2+/4. No acute focal neurological deficit. Psych/Mental Status: Anxiety, has bipolar disorder.. Assessment & Plan Assessment/Plan (1) Intractable nausea and vomiting: PLAN: Plan #Intractable nausea and vomiting in the setting of early * Patient admitted with a complaint of abdominal pain and incessant nausea and vomiting. * Urinalysis showed elevated RBC but no WBC or leukocyte esterase or bacteria. * Renal ultrasound showed nonobstructing kidney stones and no evidence of pyelonephritis. * Obstetrics ultrasound showed single live intrauterine with estimated session is now age of 6 weeks and 3 days. * Admitted to [facility]. * Hydrated with IV fluids. Keep NPO. IV Zofran. IV Reglan added. * IV Dilaudid as needed for pain 12/01: Patient had EGD. Impressions : - Normal esophagus. - Non-bleeding gastric ulcers with a visible vessel. Treated with a monopolar probe. - Normal first portion of the duodenum. - No specimens collected. Recommendations : -IV pantoprazole 40 mg total hourly. - No aspirin, ibuprofen, naproxen, or other non-steroidal anti-inflammatory drugs. NG tube removed. # Bacterial contamination: Patient denies increased frequency, urgency or burning micturition. 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 IV ceftriaxone discontinued. She has history of recurrent UTI and kidney infection in the past, last one a year ago. #Hematemesis most likely due to gastric ulcer with visible vessel as mentioned above: Literature reviewed and shows cautery before pantoprazole. Teratogenic studies in rats and diabetes are revealed no evidence of harm to the fetus further no well-controlled studies in 2020. A meta-analysis showed no significant increase in risk for congenital malformation or spontaneous with exposure to PPI, OR 1.12 with 95% CI (0.86-1.45). with the risk benefit analysis for indication of nonbleeding gastric ulcer with visible vessel which was cauterized with monopolar, will recommend 40 mg IV twice daily. #Early * Patient is 2 para 1. Last period was October 14, 2023. Ultrasound shows single live intrauterine with estimated gestational age of 6 weeks and 3 days. * Will need follow-up with obstetrics when she is about the first trimester. #History of bipolar disorder: Follow-up with psychiatry on outpatient basis. Currently stable. DVT prophylaxis: SCDs Charges/Coding Visit Charges Inpatient E&M: 14598 Subs Hosp L2
[2023-12-02 08:03] LABS: Anion Gap 8 (5-15); BUN 8 mg/dL (7-18); Calcium,Total 8.7 mg/dL (8.5-10.1); Chloride 108 mmol/L (98-107); EST Glomerular Filtration Rate 164 mL/min (>60); Est Glom Filt Rate - Afr Amer 199 mL/min (>60); Estimated Creatinine Clearance 139.58 ml/min; Glucose 62 mg/dL (74-106); Potassium 3.8 mmol/L (3.5-5.1); Sodium Level 134 mmol/L (136-145)
[2023-12-02 09:00] LABS: Magnesium 2.2 mg/dL (1.6-2.6); Phosphorus 2.7 mg/dL (2.5-4.9)
[2023-12-02] MEDS: Potassium Chloride 10mEq/100mL 10 MEQ/100 ML IV.SOLN. 100 MEQ IV BOLUS ×2 (09:07→10:16)
[2023-12-02] MEDS: 0.9% Normal Saline (250mL Bag) 250 ML 15 ML IV (09:07)
[2023-12-02] MEDS: KCL 40mEq in 0.9% NS 40 MEQ/1,000 ML IV.SOLN 125 MEQ IV ×2 (09:10→19:49)
[2023-12-02] MEDS: Ceftriaxone 1 GM/50 ML BAG IV (10:00)
[2023-12-02] MEDS: 0.9% Saline Lock 10 ML Syringe IV ×2 (10:25→17:30)
[2023-12-02] MEDS: Famotidine 200 MG/20 ML MDV 20 MG in 0.9% Normal Saline (Pres. free 8 ML 300 MG IV (10:26)
--- NOTE | 2023-12-02 12:07 | PRE.ANES_ITS ---
ASA Classification* ASA Classification ASA Classification: 2 Assessment & Plan Anesthesia* Anesthesia Assessment Anesthesia Assessment: Discussed sedation and/or anesthesia options, risks, benefits, and alternatives with patient/parents/legal guardian/POA. Questions invited. The patient/parents/legal guardian/POA seems to understand and agrees to proceed with anesthesia plan. Reviewed the physical assessment, medical history, allergy history and patient home medications list prior to surgery/procedure/anesthetic and documented any changes. Performed airway and anesthesia risk assessments. Anesthesia Type Anesthesia Type: MAC History Source History Obtained from:: Patient and Chart Anesthesia Focused Assessment* Temperature: 97.8 F Pulse Rate: 65 Blood Pressure: 110/61 Respiratory Rate: 16 Pulse Ox: 100 Oxygen Delivery Method: Room Air Airway Assessment Mouth opens: >3 cm Mallampati Score: I Teeth Condition: Intact Neck Range of motion (ROM): Full ROM Focused Labs Anesthesia Preop lab: CBC WBC 9.1 K/mm3 (4.4-11.0) 12/02/23 06:42 RBC 4.51 M/mm3 (4.2-5.4) 12/02/23 06:42 Hgb 13.1 g/dL (12.0-15.0) 12/02/23 06:42 Hct 39.6 % (37-47) 12/02/23 06:42 Plt Count 268 K/mm3 (150-450) 12/02/23 06:42 CHEMISTRY Potassium 3.8 mmol/L (3.5-5.1) 12/02/23 06:42 Sodium 134 mmol/L (136-145) L 12/02/23 06:42 Magnesium 2.2 mg/dL (1.6-2.6) 12/02/23 06:42 Phosphorus 2.7 mg/dL (2.5-4.9) 12/02/23 06:42 BUN 8 mg/dL (7-18) 12/02/23 06:42 Creatinine 0.50 mg/dL (0.55-1.02) L 12/02/23 06:42 Glucose 62 mg/dL (74-106) L 12/02/23 06:42 TSH 2.30 uIU/mL (0.358-3.74) 03/02/23 23:30 COAG PT 13.2 SECONDS (11.7-14.9) 12/24/21 15:00 HCG, Quant 84169 mIU/mL (1-3) H 12/01/23 14:00 Urine Test Negative Negative 12/22/21 06:25 Pre-Assessment Diagnosis/Proposed Procedure Planned Operative Procedure(s): Esophagogastroduodenoscopy Anesthesia History 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 When Was Last Pacemaker Check QUESTION #4 FULL TEXT: You/Your Family Experience fever (hyperthermia) with Anesthesia Last Oral Intake Last Oral intake: Last Oral Intake NPO since Meds taken in AM with sips of water? Meds patient instructed to take am of surgery Any additional information?: Yes NPO since: 00:00 PONV PONV - information security architect: PONV - information security architect Female HX of Motion Sickness HX of N/V After Surgery Non-Smoker Duration of Surgery greater than 60 minutes Number of Risk Factors PONV Score Height & Weight Height & Weight: Anesthesia: Height & Weight Height 5 ft 2 in 12/01/23 20:30 Weight: 51.8 kg 12/01/23 20:30 Body Mass Index (BMI) 20.9 12/01/23 20:30 Respiratory Assessment Respiratory Assessment - information security architect: Respiratory Tract Infection Hx - information security architect Hx Respiratory Tract Infection No 12/17/21 14:50 STOP Sleep Apnea STOP Sleep Apnea - information security architect: STOP Sleep Apnea - information security architect Hx Hypertension Yes: preg 12/02/23 11:07 Hx Sleep Apnea No 12/01/23 20:32 CPAP BIPAP Do you snore loudly (louder No 12/01/23 20:32 than talking or can be heard Do you often feel tired/ No 12/01/23 20:32 fatigued/ sleepy during daytime? Has anyone observed you stop No 12/01/23 20:32 breathing during sleep? STOP Results Negative 12/01/23 20:32 QUESTION #5 FULL TEXT : Do you snore loudly (louder than talking or can be heard through closed doors)? 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 Specify any problems Hx of Preganancy in last 3 Yes 12/01/23 20:32 Months Nurse Filling Out Transfusion DREDICK 12/01/23 20:32 & Questions: Date: 12/01/23 12/01/23 20:32 Time: 20:33 12/01/23 20:32 Patient unable to answer at this time (ie. confused, unrespo /Reproduction History /Reproductive History - information security architect: /Reproductive Hx- information security architect Hx Now Yes 12/01/23 20:32 Gestational Age (in weeks): EDC: Hx Hx Para Hx Section SAB No 12/01/23 20:32 Active Medications Active Medications: Current Medications Generic Name Dose Route Start Last Admin Trade Name Freq PRN Reason Stop Dose Admin Albuterol Sulfate 2.5 mg 12/02/23 11:37 Albuterol 2.5 Mg/3 Ml Vial.Neb. INHALATION Q6H PRN PRN wheezing Doxepin HCl 10 mg 12/02/23 22:00 Doxepin Hydrochloride 10 Mg Capsule PO QHS MADALYN Hydromorphone HCl 0.5 - 1 mg 12/01/23 20:23 12/02/23 04:09 Hydromorphone 1 Mg/Ml Syringe IV 1 mg Q3H PRN PRN Administration Pain Score 6-10 Hydromorphone HCl 0.5 - 1 mg 12/01/23 20:27 Hydromorphone 0.5 Mg/0.5 Ml Syringe IV Q3H PRN PRN Pain Score 6-10 Famotidine 20 mg/ Sodium 10 mls @ 300 mls/hr 12/01/23 22:00 12/02/23 10:31 Chloride IV Infused Q12 MADALYN Infusion Ceftriaxone Sodium 1 gm in 50 mls @ 100 mls/hr 12/02/23 10:00 Rocephin IV Q24 MADALYN Sodium Chloride 250 mls @ 15 mls/hr 12/01/23 20:25 12/02/23 09:08 IV 0 mls/hr .[id number] PRN Infusion Additional IVPB Infusion Sodium Chloride 250 mls @ 15 mls/hr 12/01/23 20:25 IV .[id number] PRN Saline Flush Potassium Chloride/Sodium Chloride 40 meq in 1,000 mls @ 125 mls/hr 12/02/23 08:00 12/02/23 09:10 IV 125 mls/hr .Q8H MADALYN Administration Melatonin 3 mg 12/01/23 22:20 12/01/23 23:04 Melatonin 3 Mg Tablet PO 3 mg QHS MADALYN Administration Ondansetron HCl 4 mg 12/02/23 07:36 12/02/23 10:25 Ondansetron 4 Mg/2 Ml Vial IV 4 mg Q6H PRN PRN Administration NAUSEA/VOMITING Oxycodone HCl 2.5 - 5 mg 12/02/23 11:32 Oxycodone 5 Mg Tablet PO Q4H PRN PRN Pain Score 4-10 or Pre PT/OT Sodium Chloride 10 - 40 ml 12/01/23 20:25 12/02/23 10:25 0.9% Saline Lock 10 Ml Syringe IV 20 ml UD PRN Administration SALINE FLUSH PFSH Medical History Bipolar 1 disorder, depressed PTSD (post-traumatic stress disorder) Ovarian cyst Alcohol use Marijuana use History of renal disease Low iron Blood disorder Easy bruising Excessive bleeding Back pain Migraine headache Injury of head and neck Syncope Seizures Asthma Non-smoker Leg cramps Pyelonephritis COVID-19 Anxiety and depression Home Medications ?Medication ?Instructions ?Recorded ?Last Taken ?Type doxepin 10 mg capsule 10 mg PO QHS see #30 caps 09/15/23 Unknown Rx cariprazine 1.5 mg capsule 1.5 mg PO DAILY bipolar #30 caps 11/10/23 Unknown Rx albuterol sulfate 90 mcg/actuation 2 puff inhalation Q6H PRN PRN 12/01/23 Unknown History aerosol inhaler wheezing Allergy/AdvReac Type Severity Reaction Status Date / Time morphine Allergy Hives Verified 09/15/23 07:34 ketorolac (From Toradol) AdvReac Vomiting Verified 09/15/23 07:34 Surgical History S/P MCL (medial collateral ligament) repair History of repair of anterior cruciate ligament of left knee History of surgery (~12/22/21) Hx of shoulder surgery History of tonsillectomy and adenoidectomy Social History Smoking Status: Current every day smoker tobacco type: cigarettes alcohol intake: never substance use type: marijuana Review of Systems (Anesthesia) ROS Narrative System reviewed and no additional complaints, except as documented.
--- NOTE | 2023-12-02 12:33 | EX.PCM.CON.G ---
HPI Consult Data Date of Consult: 12/02/23 HPI Narrative Reason for Consultation: GI bleed HPI Narrative: AMI TORRES, is a 23 F with a PMH of bipolar disorder who presents with a complaint of nausea and vomiting which started early on the morning of admission. She says her LMP was in September 2023 and she subsequently had a positive test. She came in today because she had started having several episodes of nausea and vomiting. She says she had eaten something that did not agree with her but subsequently noted that the nausea and vomiting was persistent. She also initially denied any urinary symptoms but said she went to urinate in the early hours of the morning and felt like she needed to strain to urinate. She started having pain on the right flank radiating to her right back and also noted some blood in her urine. She denied any fever or chills. Her vomiting worsening subsequently had blood in her emesis as well. She therefore came into the ED. She also admitted to a low-grade fever on the morning of admission. She denied any history of kidney stones. Review of symptoms otherwise negative. Vitals in the ED were blood pressure 108/88, pulse rate of 88, respiratory to 14 and temp of 90.2 Fahrenheit. She was saturating at 96% on room air. CBC was unremarkable and WBC was not elevated. Chemistry was significant for potassium of 3.4 and sodium of 132. Creatinine was only 0.68 and bicarb was 22. Total bilirubin was minimally elevated at 1.1. Urinalysis showed more than 100 RBC and 0 bacteria and 0-5 WBC. She had a renal USG done in the ED which showed bilateral nonobstructive nephrolithiasis and no hydronephrosis. Obstetric ultrasound showed single live intrauterine with estimated gestational age of 6 weeks and 3 days. The ED doctor discussed with obstetrics who stated that there was nothing they were going to do for the patient at this stage of early . ED doctor also discussed with gastro and neurology in light of incessant nausea and vomiting with some bloody emesis and I recommended the patient have an NG tube inserted. [facility] Medical History Bipolar 1 disorder, depressed PTSD (post-traumatic stress disorder) Ovarian cyst Alcohol use Marijuana use History of renal disease Low iron Blood disorder Easy bruising Excessive bleeding Back pain Migraine headache Injury of head and neck Syncope Seizures Asthma Non-smoker Leg cramps Pyelonephritis COVID-19 Anxiety and depression Home Medications ?Medication ?Instructions ?Recorded ?Last Taken ?Type doxepin 10 mg capsule 10 mg PO QHS see #30 caps 09/15/23 Unknown Rx cariprazine 1.5 mg capsule 1.5 mg PO DAILY bipolar #30 caps 11/10/23 Unknown Rx albuterol sulfate 90 mcg/actuation 2 puff inhalation Q6H PRN PRN 12/01/23 Unknown History aerosol inhaler wheezing Allergy/AdvReac Type Severity Reaction Status Date / Time morphine Allergy Hives Verified 09/15/23 07:34 ketorolac (From Toradol) AdvReac Vomiting Verified 09/15/23 07:34 Surgical History S/P MCL (medial collateral ligament) repair History of repair of anterior cruciate ligament of left knee History of surgery (~12/22/21) Hx of shoulder surgery History of tonsillectomy and adenoidectomy Social History Smoking Status: Current every day smoker tobacco type: cigarettes alcohol intake: never substance use type: marijuana ROS Constitutional Constitutional: Reports anorexia, fatigue, fever(s), malaise and weakness; Denies chills Eyes Eyes: Denies change in vision ENT HEENT: Denies dysphagia or headache(s) Cardiovascular Cardiovascular: Denies dyspnea on exertion, edema, lightheadedness, orthopnea, palpitations, paroxysmal nocturnal dyspnea, rapid heart rate or syncope Respiratory/Chest Respiratory/Chest: Denies cough, dyspnea, productive cough, shortness of breath at rest or shortness of breath with exertion Gastrointestinal Gastrointestinal: Reports abdominal pain, hematemesis, nausea and vomiting; Denies coffee ground emesis, constipation, diarrhea, dyspepsia, hematochezia, loose stools or melena Genitourinary Genitourinary: Reports difficulty urinating; Denies burning urination, dysuria or urinary hesitancy Musculoskeletal Musculoskeletal: Denies arthralgias or back pain Neurologic Neurologic: Denies confusion, dizziness, focal weakness, headache(s), numbness, seizures or syncope Psychiatric Psychiatric: Denies anxiety or depression Endocrine Endocrinology: Denies change in body appearance Physical Exam Const alert, oriented x3 and no apparent distress General Appearance: cooperative HEENT normocephalic and head/scalp atraumatic HEENT Narrative: dry oral mucosa Eyes PERRL, EOMs intact bilaterally and conjunctivae normal Neck no lymphadenopathy and supple Resp normal respiratory effort, no retractions, no use of accessory muscles and clear to auscultation bilaterally Cardio regular rate, regular rhythm, S1 normal heart sound, S2 normal heart sound and no murmurs GI normal to inspection, nondistended, normoactive bowel sounds, soft to palpation, non-tender and non-distended Extremity normal to inspection, full ROM and no clubbing, cyanosis or edema Neuro oriented x3, CN's II-XII intact bilaterally, moves all extremities and no focal motor deficits Sensorium / Orientation: awake and alert Motor Exam: strength 5/5 throughout Psych affect normal Lab / Micro Data 12/02/23 06:42 12/02/23 06:42 Labs: Laboratory Results - last 24 hr 12/01/23 14:00: WBC 9.4, RBC 4.83, Hgb 14.3, Hct 41.6, MCV 86.1, MCH 29.6, MCHC 34.4, RDW Std Deviation 40.0, RDW Coeff of Rene 12.7, Plt Count 295, MPV 10.2, Immature Gran % (Auto) 0.300, Neut % (Auto) 75.6 H, Lymph % (Auto) 16.7 L, [place] % (Auto) 7.0, Eos % (Auto) 0.1, Baso % (Auto) 0.3, Absolute Neuts (auto) 7.1, Absolute Lymphs (auto) 1.57, Nucleated RBC % 0, Sodium 132 L, Potassium 3.4 L, Chloride 101, Carbon Dioxide 22.0, Anion Gap 9, BUN 10, Creatinine 0.68, Estim Creat Clear Calc 102.64, Est GFR (MDRD) Af Amer 139, Est GFR (MDRD) Non-Af 115, BUN/Creatinine Ratio 14.7, Glucose 75, Calcium 9.9, Total Bilirubin 1.10 H, AST 9 L, ALT 13, Alkaline Phosphatase 66, Total Protein 8.6 H, Albumin 4.8, Globulin 3.8, Albumin/Globulin Ratio 1.3, HCG, Quant 36075 H 12/01/23 14:55: Urine Color Yellow, Urine Clarity Sl. Cloudy, Urine pH 6.0, Ur Specific [place] 1.025, Urine Protein 30 H, Urine Glucose (UA) Normal, Urine Ketones 150 A*, Urine Occult Blood 250 H, Urine Nitrite Negative, Urine Bilirubin Negative, Urine Urobilinogen 1 H, Ur Leukocyte Esterase 25 H, Urine RBC > 100 SEEN, Urine WBC 0-5 SEEN, Ur Squamous Epith Cells 0-5 SEEN, Urine Bacteria 0 SEEN, Urine Mucus 0 SEEN 12/02/23 06:42: WBC 9.1, RBC 4.51, Hgb 13.1, Hct 39.6, MCV 87.8, MCH 29.0, MCHC 33.1, RDW Std Deviation 41.1, RDW Coeff of Rene 12.7, Plt Count 268, MPV 10.0, Immature Gran % (Auto) 0.300, Neut % (Auto) 72.6 H, Lymph % (Auto) 18.6 L, [place] % (Auto) 7.9, Eos % (Auto) 0.2, Baso % (Auto) 0.4, Absolute Neuts (auto) 6.6, Absolute Lymphs (auto) 1.69, Nucleated RBC % 0, Sodium 134 L, Potassium 3.8, Chloride 108 H, Carbon Dioxide 18.0 L, Anion Gap 8, BUN 8, Creatinine 0.50 L, Estim Creat Clear Calc 139.58, Est GFR (MDRD) Af Amer 199, Est GFR (MDRD) Non-Af 164, BUN/Creatinine Ratio 16.0, Glucose 62 L, Calcium 8.7, Phosphorus 2.7, Magnesium 2.2 Micro: Microbiology 12/01/23 14:55 Urine, Clean Catch Urine Culture - 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 Estimated gestational age is 6 weeks and 3 days. Electronically Signed: Trevor Diggs MD at 17:09 EDT , Renal Ultrasound 12/01/23 15:39 IMPRESSION: Bilateral nonobstructive nephrolithiasis as described above. No hydronephrosis. Electronically Signed: Trevor Diggs MD at 17:08 EDT , KUB X-Ray 12/01/23 17:55 IMPRESSION: NG tube is in place with tip and sidehole in the stomach. Electronically Signed: Trevor Diggs MD at 18:23 EDT , Assessment & Plan Assessment/Plan (1) Intractable nausea and vomiting: PLAN: Plan 24-year-old Intractable nausea and vomiting in the setting of early Patient admitted with a complaint of abdominal pain and incessant nausea and vomiting. Urinalysis showed elevated RBC but no WBC or leukocyte esterase or bacteria. Renal ultrasound showed nonobstructing kidney stones and no evidence of pyelonephritis. Obstetrics ultrasound showed single live intrauterine with estimated session is now age of 6 weeks and 3 days. [facility] Hydrated with [facility] fluids. Keep NPO. IV Zofran. IV Dilaudid as needed for pain She will need to undergo an upper endoscopy to evaluate upper GI bleed. She was explained alternatives, risk, benefits including understanding bleeding, infection, sepsis, perforation, need for emergent surgery and . She will have an ASA of 3. Hematemesis Am concerned patient may have a [place] tear due to her excessive vomiting with resultant hematemesis. Patient currently NPO. This was inserted with patient subsequently requested for it to be taken out because she cannot tolerated. Hold off on pantoprazole due to possible risk of teratogenicity. IV Zofran as needed. Charges/Coding Visit Charges Inpatient E&M: 61924 Init Hosp L3
--- NOTE | 2023-12-02 12:51 | OP.EGD_ITS ---
Patient Name: Joleen Zarate Procedure Date: 12/02/2023 12:27 PM Date of : 2000 Age: 23 Procedure: Upper GI endoscopy Indications: Hematemesis Providers: Jose Alfredo Noriega DO Medicines: Monitored Anesthesia Care Patient Profile: This is a 23 year old female. Refer to note in patient chart for documentation of history and physical. Patient has symptoms of acute epigastric abdominal pain, acute nausea and acute vomiting. Complications: No immediate complications. Procedure: Pre-Anesthesia Assessment: - Prior to the procedure, a History and Physical was performed, and patient medications and allergies were reviewed. The patient is competent. The risks and benefits of the procedure and the sedation options and risks were discussed with the patient. All questions were answered and informed consent was obtained. Patient identification and proposed procedure were verified by the physician in the pre-procedure area. Mental Status Examination: alert and oriented. Airway Examination: normal oropharyngeal airway and neck mobility. Respiratory Examination: clear to auscultation. CV Examination: normal. Prophylactic Antibiotics: The patient does not require prophylactic antibiotics. Prior Anticoagulants: The patient has taken no anticoagulant or antiplatelet agents except for NSAID medication. ASA Grade Assessment: II - A patient with mild systemic disease. After reviewing the risks and benefits, the patient was deemed in satisfactory condition to undergo the procedure. The anesthesia plan was to use monitored anesthesia care (MAC). Immediately prior to administration of medications, the patient was re-assessed for adequacy to receive sedatives. The heart rate, respiratory rate, oxygen saturations, blood pressure, adequacy of pulmonary ventilation, and response to care were monitored throughout the procedure. The physical status of the patient was re-assessed after the procedure. After obtaining informed consent, the endoscope was passed under direct vision. Throughout the procedure, the patient's blood pressure, pulse, and oxygen saturations were monitored continuously. The gastroscope was introduced through the mouth, and advanced to the second part of duodenum. The upper GI endoscopy was accomplished without difficulty. The patient tolerated the procedure well. Scope In: 12:42:32 PM Scope Out: 12:46:28 PM Total Procedure Duration Time 0 hours 3 minutes 56 seconds Findings: The examined esophagus was normal. Two non-bleeding linear gastric ulcers with a visible vessel were found in the gastric body. The largest lesion was 6 mm in largest dimension. Coagulation for hemostasis using monopolar probe was successful. Estimated blood loss was minimal. The first portion of the duodenum was normal. Impression: - Normal esophagus. - Non-bleeding gastric ulcers with a visible vessel. Treated with a monopolar probe. - Normal first portion of the duodenum. - No specimens collected. Recommendation: - Return patient to [facility] for ongoing care. - Advance diet as tolerated. - Continue present medications. - No aspirin, ibuprofen, naproxen, or other non-steroidal anti-inflammatory drugs. Procedure Code(s): --- Professional --- 88109, Esophagogastroduodenoscopy, flexible, transoral; with control of bleeding, any method CPT copyright 2021 [employer]. All rights reserved. The codes documented in this report are preliminary and upon ela teacher review may be revised to meet current compliance requirements. Jose Alfredo Noriega DO 12/02/2023 12:51:05 PM This report has been signed electronically. Number of Addenda: 0 Note Initiated On: 12/02/2023 12:27 PM
--- NOTE | 2023-12-02 12:51 | OP.CCLET_ITS ---
12/02/2023 Samuel Howell Re : Upper GI endoscopy procedure for Joleen Howell This procedure was performed on November. My impressions and recommendations are as follows: Impressions : - Normal esophagus. - Non-bleeding gastric ulcers with a visible vessel. Treated with a monopolar probe. - Normal first portion of the duodenum. - No specimens collected. Recommendations : - Return patient to [facility] for ongoing care. - Advance diet as tolerated. - Continue present medications. - No aspirin, ibuprofen, naproxen, or other non-steroidal anti-inflammatory drugs. My findings are described in the full procedure note, which is enclosed. If I can be of further assistance, please feel free to contact me at . Sincerely, Jose Alfredo Friend, 12/02/2023 12:51:05 PM This report has been signed electronically.
--- NOTE | 2023-12-02 12:53 | PCM.POST.ANE ---
Anesthesia: Postop Eval I Current Vital Signs Temperature: 98.7 F Pulse Rate: 80 Blood Pressure: 90/59 Respiratory Rate: 16 Pulse Ox: 100 Oxygen Delivery Method: Room Air Assessment Airway patent: Yes Spontaneous unlabored respirations: Yes Mental status: Asleep nausea: No Vomiting: No Anesthesia Complication: No Fluid Hydration Crystalloid volume administer (ml): 400 Total IV fluid infused: 400 Progress Note Anesthesia document: Postop Eval 1 completed: Yes
--- NOTE | 2023-12-02 13:48 | PCM.POSTANE2 ---
Anesthesia Postop Eval I Sum Postop Eval Completion status Anesthesia document: Postop Eval 1 completed: Yes Anesthesia Postop Eval I Summary Anesthesia Postop Eval I Summary: Anesthesia Postop Eval I: Assessment Summary Airway patent Yes 12/02/23 12:54 [email or web address] Spontaneous unlabored Yes 12/02/23 12:54 [email or web address] respirations Mental status Asleep 12/02/23 12:54 [email or web address] nausea No 12/02/23 12:54 [email or web address] Vomiting No 12/02/23 12:54 [email or web address] Anesthesia Postop Eval I: Fluid Summary Crystalloid volume administer 400 12/02/23 12:54 [email or web address] (ml) Colloids volume administered ( ml) Blood Product volume administered (ml) Total IV fluid infused 400 12/02/23 12:54 [email or web address] Anesthesia Postop Eval I: Summary Notes Anesthesia Complication No 12/02/23 12:54 [email or web address] Anesthesia Complication Comment: Post-operative progress note Anesthesia: Postop Eval II Evaluation Mental status: Awake Pain Level: 0 nausea: No Vomiting: No
[2023-12-02] MEDS: oxyCODONE 5 MG Tablet PO (13:50)
--- NOTE | 2023-12-02 14:35 | CASEMGMT ---
RN CM Assessment Face to Face with patient for initial transition planning/care coordination assessment. RN CM introduced self and role at [facility], pt voices understanding. Pt is A&Ox4 and is resting comfortably in bed and is calm. Care providers, pharmacy, and demographics verified. Admitting dx: N/V LACE Strata: 1 PCP: Samuel Howell Specialists: Denies Preferred Pharmacy: [facility] Insurance: [employer], [employer] Prescription Benefit: Yes LNOK: Nik Zarate (F) Living Arrangements: Pt lives with her father in a 2 story home with a basement and 5 steps to enter ADLs/IADLs: Ind Transportation: Self, father, friends DME: BP Monitor, Pulse Ox. Denies further needs HHC/SNF: Denies Hx or needs Pt?s goal: Home Plan: Home no needs once medically ready. 6-Click is 24. Pt states that she was recently throwing up blood and called the RN to bedside. Pt denies further questions or concerns from this RN CM. Report given to GITA GARCIA CM. Hiren Traore RN, CM
[2023-12-02] MEDS: Metoclopramide 10 MG/2 ML Vial 5 MG IV (17:30)
[2023-12-02] MEDS: Pantoprazole Sodium 40 MG in 0.9% Normal Saline (100mL MB+) 100 ML 330 MG IV ×2 (17:35→22:16)
[2023-12-02] MEDS: Ipratropium/Albuterol Sulfate 3 ML AMPUL.NEB INHALATION (18:50)
[2023-12-02] MEDS: Doxepin Hydrochloride 10 MG Capsule PO (22:15)
[2023-12-03] MEDS: 0.9% Saline Lock 10 ML Syringe IV ×2 (03:12→08:39)
[2023-12-03] MEDS: Metoclopramide 10 MG/2 ML Vial 5 MG IV (03:12)
[2023-12-03] MEDS: KCL 40mEq in 0.9% NS 40 MEQ/1,000 ML IV.SOLN 125 MEQ IV ×2 (03:24→12:34)
[2023-12-03 03:37] VITALS: BP 102/69; PULSE 69; RESP 18; TEMP 36.9; O2SAT 100
[2023-12-03] MEDS: Ondansetron 4 MG/2 ML Vial IV (08:39)
[2023-12-03] MEDS: Pantoprazole Sodium 40 MG in 0.9% Normal Saline (100mL MB+) 100 ML 330 MG IV (09:02)
[2023-12-03] MEDS: oxyCODONE 5 MG Tablet PO (09:02)
[2023-12-03 09:30] VITALS: BP 104/65; PULSE 74; RESP 18; TEMP 37.1; O2SAT 100
--- NOTE | 2023-12-03 10:11 | DCINST_ITS ---
Discharge Instructions Diet Discharge Diet: Light diet - advance as tolerated (Soft diet for next 3 days.) Activity Discharge Activity: Return to Normal Activity Weight Bearing Status: Weight bearing as tolerated Dressing / Incision Call your doctor if you observe: Fever of 101 or Higher, Coldness, Increased Pain, Numbness or Tingling, Change in Color, Inability to urinate, Inability to have a bowel movement, Using more than 1 pad per hour, Shortness of breath, Dizziness, Fainting spells, Swelling in the ankles, Chest pain, Prolonged hiccupping, Increased palpitations (irregular heartbeat) and Calf discomfort Follow Up Care When: IN 2 WEEKS Test Results: Test results from this visit will be discussed in further detail at your follow- up appointment, if applicable. Discharge Plan Admission Admit Date/Time: 12/01/23 17:55 Primary Reason for Your Visit: Gastric ulcer with visible vessel. Upper GI bleed Attending Provider: Carroll Thibodeaux Primary Care Provider: Samuel Howell Consulting Providers: Charlene Lemos Discharge Orders/Prescriptions Prescriptions: New pantoprazole [Protonix] 40 mg tablet,delayed release (DR/EC) 40 mg PO BID 30 Days Qty: 60 2RF Continued doxepin 10 mg capsule 10 mg PO QHS Qty: 30 2RF albuterol sulfate 90 mcg/actuation HFA aerosol inhaler 2 puff INHALATION Q6H PRN PRN (Reason: wheezing) cariprazine 1.5 mg capsule 1.5 mg PO DAILY Qty: 30 0RF Referrals / Follow Up: Jose Alfredo Noriega DO [Med Staff - Active Staff] - Within 1 Month Samuel Howell MD [Primary Care Provider] - Disposition Disposition (needs filled in before D/C Order can be placed): Home, Self Care
--- NOTE | 2023-12-03 11:55 | DS.PCM_ITS ---
Providers Date of Admission: 12/01/23 Date of Discharge: 12/03/23 Primary Care Physician: Dr. Samuel Howell MD Consultations 12/01/23 20:23 Consult: Gastroenterology Routine Consulting Provider: [facility] Reason for Consult: intractable nausea and vomiting, hematemesis EMERGENT Consult: No MD Notified: Yes Date Notified: 12/01/23 Time Notified: 18:05 Method of Notification: Text Reason For Visit: INTRACTABLE NAUSEA AND VOMITING Diagnosis Discharge Diagnosis (1) Intractable nausea and vomiting: Status: Acute Code(s): R11.2 - Nausea with vomiting, unspecified Plan 23-year-old female was admitted with nausea and vomiting started early on the day of admission. She is also 6 weeks with positive test, LMP in September 2023. Complain of pain on the right flank radiating to right back and noted some blood in the urine. Denied burning micturition, increased frequency or urgency but stated she had to strain to urinate to the admitting hospitalist. #Intractable nausea and vomiting and right flank pain in the setting of early probably hyperemesis gravidarum: [facility] * Urinalysis showed elevated RBC but no WBC or leukocyte esterase or bacteria. * Renal ultrasound showed bilateral nonobstructing kidney stones, 2 to 4 mm and no evidence of pyelonephritis. I do not think this is the cause of her abdominal pain. * Obstetrics ultrasound showed single live intrauterine with estimated session is now age of 6 weeks and 3 days. * Was treated with IV fluids. Keep NPO. IV Zofran. IV Reglan added. * IV Dilaudid as needed for pain 12/01: Patient had EGD. Impressions : - Normal esophagus. - Non-bleeding gastric ulcers with a visible vessel. Treated with a monopolar probe. - Normal first portion of the duodenum. - No specimens collected. Recommendations : -IV pantoprazole 40 mg total hourly. - No aspirin, ibuprofen, naproxen, or other non-steroidal anti-inflammatory drugs. NG tube removed. 12/02: Discussed with Dr. Nroiega. Pantoprazole 40 mg twice daily for 3 months needed for healing of the ulcer. Pantoprazole, abdominal other PPI category B medication but larges studies in [place] and [place] did not find any significant or major congenital malformation or adverse effect as compared to control. This was communicated to the patient with the patient's nursing staff and discussed risk and benefit ratio that risk of not taking PPI is very high. She further said that she had decided about the even before coming here knowing what ulcer. Advised follow-up in GI clinic in 1 month. Prescription of pantoprazole given. Advised not to take NSAID, aspirin or other anticoagulant medication # Bacterial contamination: Patient denies increased frequency, urgency or burning micturition. 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 IV ceftriaxone discontinued. She has history of recurrent UTI and kidney infection in the past, last one a year ago. N/C, follow-up with PCP. #Hematemesis most likely due to gastric ulcer with visible vessel as mentioned above: Literature reviewed and shows cautery before pantoprazole. Teratogenic studies in rats and diabetes are revealed no evidence of harm to the fetus further no well-controlled studies in 2020. A meta-analysis showed no significant increase in risk for congenital malformation or spontaneous with exposure to PPI, OR 1.12 with 95% CI (0.86-1.45). with the risk benefit analysis for indication of nonbleeding gastric ulcer with visible vessel which was cauterized with monopolar, will recommend 40 mg IV twice daily. 12/02: As mentioned above #Early * Patient is 2 para 1. Last period was October 14, 2023. Ultrasound shows single live intrauterine with estimated gestational age of 6 weeks and 3 days. * Will need follow-up with obstetrics when she is about the first trimester. 12/02: She says she is going to follow with OB next week for . #History of bipolar disorder: Follow-up with psychiatry on outpatient basis. Currently stable. DVT prophylaxis: SCDs Discharge medication reconciliation done. Discharge follow-up instructions completed. Discharge process discussed with the patient and all questions were answered to patient's satisfaction. Follow with PCP in 1 to 2 weeks Total time spent, exact 35 minutes on discharge meds reconciliation, examination, coordination of care with nurses and ancillary staff, review of imaging and blood test and discussion with the patient on follow-up instructions. Clinical Impression(s) from Imaging Studies Obstetrics Ultrasound 12/01/23 15:38 IMPRESSION: Single live intrauterine . Estimated gestational age is 6 weeks and 3 days. Electronically Signed: Trevor Diggs MD at 17:09 EDT , Renal Ultrasound 12/01/23 15:39 IMPRESSION: Bilateral nonobstructive nephrolithiasis as described above. No hydronephrosis. Electronically Signed: Trevor Diggs MD at 17:08 EDT , KUB X-Ray 12/01/23 17:55 IMPRESSION: NG tube is in place with tip and sidehole in the stomach. Electronically Signed: Trevor Diggs MD at 18:23 EDT , Medications at Discharge Home Medications doxepin 10 mg capsule 10 mg PO QHS see #30 caps 09/15/23 cariprazine 1.5 mg capsule 1.5 mg PO DAILY bipolar #30 caps 11/10/23 albuterol sulfate 90 mcg/actuation aerosol inhaler 2 puff inhalation Q6H PRN PRN wheezing 12/01/23 pantoprazole 40 mg tablet,delayed release (Protonix) 40 mg PO BID 30 days #60 tabs 12/03/23 Physical Exam Narrative Seen and examined. Nausea and vomiting has resolved. Discussed again today Macdonald there is always an role of PPI. Complain of right flank pain going to back but no reproducible tenderness Physical exam General: Alert, Oriented x3, Cooperative HEENT: Atraumatic, PERRLA, EOMI, Normocephalic Oral: No Gingival or Mucosal Lesions/ Ulcerations Neck: Supple, No JVD, Negative Carotid Bruits Chest wall/Lungs: Air entry diminished in bilateral lung bases. No crepitation/rhonchi Cardiovascular: Regular rate, Regular Rhythm, Normal S1, Normal S2, No M/G/R Abdomen: Bowel Sounds Present, Soft, Non Tender, Non-Distended : Single live fetus, pelvic. No tenderness over right flank/right lumbar region. No dysuria/increased frequency or urgency. No suprapubic tenderness. Extremities: No edema, Capillary Refill Less than 3 Seconds Skin: No rashes, No breakdown Musculoskeletal: No Tenderness to Palpation of Joints or Extremities. ROM adequate. Neurological: Cranial nerves II-XII grossly intact, DTR 2+/4. No acute focal neurological deficit. Psych/Mental Status: Anxiety, has bipolar disorder.. Weight / BMI Weight Weight: 114 lb 3.191 oz Body Mass Index (BMI) 20.9 ABG / Lab / Microbiology Data 12/02/23 06:42 12/02/23 06:42 Microbiology: Microbiology 12/01/23 14:55 Urine, Clean Catch Urine Culture - Final Escherichia coli D/C Instructions Discharge Diet: Light diet - advance as tolerated (Soft diet for next 3 days.) Weight Bearing Status: Weight bearing as tolerated Call your doctor if you observe: Fever of 101 or Higher, Coldness, Increased Pain, Numbness or Tingling, Change in Color, Inability to urinate, Inability to have a bowel movement, Using more than 1 pad per hour, Shortness of breath, Dizziness, Fainting spells, Swelling in the ankles, Chest pain, Prolonged hiccupping, Increased palpitations (irregular heartbeat) and Calf discomfort When: IN 2 WEEKS Meaningful Use Info Meaningful Use Meaningful Use Diagnoses (Choose all that apply): None applicable Ischemic Stroke Statin Dosing Therapy Reference: STATIN DOSE THERAPY REFERENCE: * Patients > 75 years receive moderate or high dose statin therapy. * Patients 75 years or YOUNGER should receive HIGH intensity statin dose unless contraindicated. You will be required to document reason for non-treatment if statin daily dose does not meet guidelines. HIGH DOSE STATIN THERAPY DAILY Atorvastatin > than or = to 40 mg Rosuvastatin > than or = to 20 mg Amlodipine + Atorvastatin > than or = to 2.5/40 mg Ezetimibe + Simvastatin 10/80 mg Simvastatin 80mg Discharge Plan Admission Admit Date/Time: 12/01/23 17:55 Primary Reason for Your Visit: Gastric ulcer with visible vessel. Upper GI bleed Attending Provider: Carroll Thibodeaux Primary Care Provider: Samuel Howell Consulting Providers: Charlene Lemos Discharge Orders/Prescriptions Prescriptions: New pantoprazole [Protonix] 40 mg tablet,delayed release (DR/EC) 40 mg PO BID 30 Days Qty: 60 2RF Continued doxepin 10 mg capsule 10 mg PO QHS Qty: 30 2RF albuterol sulfate 90 mcg/actuation HFA aerosol inhaler 2 puff INHALATION Q6H PRN PRN (Reason: wheezing) cariprazine 1.5 mg capsule 1.5 mg PO DAILY Qty: 30 0RF Referrals / Follow Up: Jose Alfredo Noriega DO [Med Staff - Active Staff] - Within 1 Month Samuel Howell MD [Primary Care Provider] - Disposition Disposition (needs filled in before D/C Order can be placed): Home, Self Care Charges/Coding Visit Charges Inpatient E&M: 43490 Disch Hosp >30min
[2023-12-03 14:01] VITALS: BP 118/68; PULSE 85; RESP 18; TEMP 36.7; O2SAT 100
--- NOTE | 2023-12-13 15:56 | CASEMGMT ---
TC to pt as a cover my meds was received for protonix. Pt states she has paid out of pocket for this and has the medication. She denies any needs and was able to afford the medication.
== END 2023-12-03 14:14 | disposition home or self-care (01) | DRG 832 ==
LOC: ED 17:51 → MS3 20:23
PROVIDERS: Internal Medicine Gastroenterology; Admitting Provider Student in an Organized Health Care Education/Training Program; Emergency Provider Emergency Medicine; PCP Family Medicine; Visit Provider Internal Medicine
PROC: 0DJ08ZZ Inspection of Upper Intestinal Tract, Via Natural or Artificial Opening Endoscopic (ICD-10-PCS; CPT 43235; principal; 2023-12-02 12:10)
DX: O99.611 Diseases of the digestive system complicating pregnancy, first trimester (principal); K92.0 Hematemesis; I95.9 Hypotension, unspecified; F31.9 Bipolar disorder, unspecified; K25.9 Gastric ulcer, unspecified as acute or chronic, without hemorrhage or perforation; O21.0 Mild hyperemesis gravidarum; O99.411 Diseases of the circulatory system complicating pregnancy, first trimester; O99.341 Other mental disorders complicating pregnancy, first trimester; Z3A.01 Less than 8 weeks gestation of pregnancy; Z79.899 Other long term (current) drug therapy
CPT/HCPCS: 36415; 74018; 76770; 76817; 80048; 80053; 81001; 83735; 84100; 84702; 85025; 87077; 87086; 87088; 87186; 94640; 97162; 99285; J7030; J7050; J7120; A4216; J2405; J3490

== ENCOUNTER 2024-07-30 11:46 | Emergency (ER) | payer OTHER, MEDICAID, SELFPAY ==
[2024-07-30 11:47] VITALS: BP 120/79; PULSE 101; RESP 19; TEMP 36.5; O2SAT 100; BMI 23.7
--- NOTE | 2024-07-30 12:29 | EDS_ITS ---
HPI History of Present Illness Chief Complaint: General Illness [facility] Medical History Bipolar 1 disorder, depressed PTSD (post-traumatic stress disorder) Ovarian cyst Alcohol use Marijuana use History of renal disease Low iron Blood disorder Easy bruising Excessive bleeding Back pain Migraine headache Injury of head and neck Syncope Seizures Asthma Non-smoker Leg cramps Pyelonephritis COVID-19 Anxiety and depression Home Medications ?Medication ?Instructions ?Recorded ?Last Taken ?Type albuterol sulfate 90 mcg/actuation 2 puff inhalation Q 6H PRN PRN 12/01/23 Un known History aerosol inhaler wheezing cariprazine 3 mg capsule 3 mg PO DAILY bipolar 90 day s #90 02/29/24 Unknown Rx caps trazodone 50 mg tablet 50 - 100 mg (1 - 2 x 50 mg) PO QHS 04/20/24 Unknown Rx PRN sleep #60 tabs ondansetron 4 mg disintegrating 4 mg PO Q8H PRN PRN Na usea #10 tabs 07/30/24 Unknown Rx tablet sulfamethoxazole 800 1 tab PO BID 7 days #14 tabs 07/30/24 Unknown Rx mg-trimethoprim 160 mg tablet (Bactrim DS) Allergy/AdvReac Type Severity Reaction Status Date / Time morphine Allergy Hives Verified 07/30/24 11:50 Family History Mother Diabetes Surgical History History of esophagogastroduodenoscopy (EGD) (~11/2023) S/P MCL (medial collateral ligament) repair History of repair of anterior cruciate ligament of left knee History of surgery (~12/22/21) Hx of shoulder surgery History of tonsillectomy and adenoidectomy Social History Smoking Status: Former smoker how long ago did patient quit smokin months ago alcohol intake: never substance use type: does not use caffeine: Yes Type: carbonated beverages Number of servings: 1 EXAM Physical Exam Const Vital Signs: 07/30/24 11:47 07/30/24 12:50 07/30/24 13:24 Temperature 97.7 F L 97.9 F Temperature Source Temporal Oral Pulse Rate 101 H 101 H Respiratory Rate 19 H 18 Respiratory Effort Normal Non-Labored Respiratory Pattern Normal Blood Pressure 120/79 120/79 Blood Pressure Mean 92 92 Pulse Ox 100 100 Oxygen Delivery Method Room Air Room Air 07/30/24 13:32 07/30/24 14:40 Temperature 97.8 F 97.8 F Temperature Source Oral Oral Pulse Rate 70 74 Respiratory Rate 16 18 Respiratory Effort Respiratory Pattern Blood Pressure 111/79 117/69 Blood Pressure Mean 89 85 Pulse Ox 100 100 Oxygen Delivery Method Room Air Room Air [facility] MDM Narrative Medical decision making narrative: HISTORY OF PRESENT ILLNESS: Chief complaint: Abdominal pain 23-year-old female history of bipolar disorder, PTSD, asthma, anxiety/ depression, presents abdominal pain. She was recently diagnosed with UTI, yeast and trichomonas infection. She was recent started antibiotics (Flagyl). She further states she thinks may have a kidney infection. Complains of diffuse abdominal pain and right flank pain. Notes hematuria. Notes nausea but no vomiting. Denies fevers but notes chills. Patient is not sexually active currently. States she had some vaginal discharge a week ago she was seen as an outpatient and got vaginal swabs at that time which was positive trichomonas and yeast. She is currently on metronidazole and an oral antifungal. REVIEW OF SYSTEMS: Pertinent positives: Abdominal pain/flank pain, hematuria Pertinent negatives: PHYSICAL EXAM: Nursing triage notes reviewed, Vital signs reviewed Constitutional: please see [facility] HENT: MMM Eyes: Pupils equal round and reactive to light, Extraocular muscles intact Neck: No stridor, no JVD, full neck ROM Lungs: Clear to auscultation, No wheezing or rales. No increased work of breathing, no conversational dyspnea, no accessory muscle use, no nasal flaring. No respiratory distress noted Heart: Regular rate and rhythm, No murmurs, No rubs and No gallops, 2+ distal pulses (radial, femoral, posterior tibial) in all extremities Abdomen: Soft, there is no tenderness, rigidity, rebound or guarding, no obvious peritoneal signs, no palpable pulsatile abdominal masses, no auscultated abdominal bruit : Right CVAT Extremities: No edema Neuro: No new focal neurological deficits, cranial nerves II through XII intact, 5/5 strength in all present extremities. Intact sensation to light touch in all present extremities, 2+ reflexes bilateral patella tendons. Skin: No rash or lesions noted MEDICAL DECISION MAKING: Chief Complaint: please see HPI External records reviewed: Reviewed prior imaging studies: Reviewed prior imaging of the abdomen pelvis from 2021 which showed a 4 cm hemorrhagic ovarian cyst Factors affecting care: As per HPI Social determinants of health: denies alcohol or illicit drug History obtained from others: none Consults: none [facility] Narrative: The patient was initially hemodynamically stable, afebrile and nontoxic-ap pearing. Exam without peritoneal signs. Noted right CVA tenderness I considered the following differential diagnosis: Pyelonephritis, nephrolithiasis, UTI, , acute appendicitis I obtained a broad lab and imaging workup to further elucidate etiology of patient's complaints. I initially treated the patient with oral Tylenol, IV fluids and IV Zofran Of note patient refused Tylenol ALL IMAGES (IF OBTAINED) HAVE BEEN PERSONALLY REVIEWED AND INTERPRETED BY MYSELF. Urinalysis consistent with UTI CBC without leukocytosis, severe anemia, no thrombocytopenia. CMP without evidence of acute kidney injury, significant electrolyte abnormality, anion gap to suggest end organ hypo-perfusion, no evidence of metabolic acidosis with a normal bicarbonate, no evidence of hepatobiliary obstructive pathology. CT scan on pelvis shows evidence of possible pelvic inflammatory disease. Lactate is wnl indicating no end-organ hypoperfusion and/or hypoxia. Urine test is negative The synthesis of the patient's history, physical exam, labs images are consistent with likely UTI/pyelonephritis versus pelvic inflammatory disease. She is being treated for pelvic inflammatory disease with metronidazole which I encouraged her to continue. Concern for UTI/pyelonephritis given urinalysis with nitrite and leuk esterase. Added Bactrim. Add a urine culture. Gave Zofran. Given reassuring labs and images. No sign of sepsis or significant intra-abdominal pathology the patient is appropriate for discharge home. Strict return precautions were discussed. Gave ACQUISITIONS EDITOR follow-up instructions. The patient and/or family, caregivers express understanding. The patient and/or family, caregivers agrees with the plan. Shared decision making: I will have a discussion with the patient and or visitors regarding risk/benefits of further testing or admission. They will be made aware of of the risk/benefits inherent in this decision they will be given the opportunity to voice understanding. Total critical care time today provided was at least 0 minutes. This excludes separately billable procedures. Critical care time (if documented) is secondary to the patient having high probability of clinically significant/life threatening deterioration in the patient's condition which required my urgent intervention. Impression: 1. Acute pyelonephritis 2. Nausea and vomiting 3. Pelvic inflammatory disease Dispo: Discharge home This note was generated with [facility] [employer] dictation software. It may contain incorrect words, spelling, and punctuation that were not noted in review of the chart prior to signing. Lab Data Labs: Laboratory Results - last 24 hr 07/30/24 07/30/24 12:05 13:18 WBC 7.4 RBC 4.87 Hgb 13.9 Hct 41.6 MCV 85.4 MCH 28.5 MCHC 33.4 RDW Std Deviation 44.7 H RDW Coeff of Rene 14.3 Plt Count 249 MPV 10.7 Immature Gran % (Auto) 1.500 H Neut % (Auto) 72.1 H Lymph % (Auto) 14.7 L [place] % (Auto) 10.1 H Eos % (Auto) 1.1 Baso % (Auto) 0.5 Absolute Neuts (auto) 5.4 Absolute Lymphs (auto) 1.09 Nucleated RBC % 0 Sodium 140 Potassium 3.6 Chloride 104 Carbon Dioxide 22.8 Anion Gap 13 BUN 8 Creatinine 0.75 Estim Creat Clear Calc 93.06 Est GFR (MDRD) Non-Af 116 BUN/Creatinine Ratio 10.0 Glucose 86 Lactic Acid < 1.0 Calcium 9.6 Total Bilirubin 0.44 AST 16 ALT 9 Alkaline Phosphatase 69 Total Protein 7.7 Albumin 5.0 Globulin 2.7 Albumin/Globulin Ratio 1.8 Lipase 33 Urine Color Yellow Urine Clarity Clear Urine pH 6.5 Ur Specific [place] 1.020 Urine Protein TNP Urine Glucose (UA) Normal Urine Ketones Negative Urine Occult Blood 250 H Urine Nitrite Positive H Urine Bilirubin Negative Urine Urobilinogen 1 H Ur Leukocyte Esterase 100 H Urine RBC 25-50 SEEN Urine WBC 0-5 SEEN Ur Squamous Epith Cells 0-5 SEEN Urine Bacteria 1+ Urine Mucus 0 SEEN U Random Total Protein 37.2 H Urine Test Negative Radiography Diagnostic Testing: Clinical Impression(s) from Imaging Studies Abdomen/Pelvis CT 07/30/24 12:58 IMPRESSION: Possible pelvic inflammatory disease but no well-defined tubo-ovarian abscess. Reading Location: [id number] Discharge Plan Triage Chief Complaint: General Illness ED Provider: Min Pham Dx/Rx/DC Orders Clinical Impression: Trichomonal cystitis, UTI (urinary tract infection) Instructions: UTIs, ED Pelvic Inflammatory Disease Prescriptions: New sulfamethoxazole-trimethoprim [Bactrim DS] 800-160 mg tablet 1 tab PO BID 7 Days Qty: 14 0RF ondansetron 4 mg tablet,disintegrating 4 mg PO Q8H PRN PRN (Reason: Nausea) Qty: 10 0RF No Action cariprazine 3 mg capsule 3 mg PO DAILY 90 Days Qty: 90 1RF albuterol sulfate 90 mcg/actuation HFA aerosol inhaler 2 puff INHALATION Q6H PRN PRN (Reason: wheezing) trazodone 50 mg tablet 50 - 100 mg PO QHS PRN (Reason: sleep) Qty: 60 2RF Primary Care Provider: Samuel Howell Referrals: Xena Nguyen MD [Med Staff - Active Staff] - Activity Restrictions/Additional Instructions: Thank you for trusting us with your care today! Your labs and images are consistent with likely pelvic inflammatory disease secondary to trichomonas. Please continue taking metronidazole as prescribed until course is complete. Please take Zofran as needed for nausea and vomiting control. Your Urine test was + for signs of UTI as well will start you on a second antibiotic (bactrim). Please complete entire course of antibiotic. Please take Tylenol (2 pills, 650 mg), ibuprofen (2 pills, 400 mg) every 6 hours as needed for pain and fever control. Please return to the emergency department if your symptoms change or worsen. Specifically develop vomiting. Severe lower abdominal pain or if you lose consciousness. Please follow with your ACQUISITIONS EDITOR for further outpatient evaluation and management. Print Language: Amharic Disposition Disposition: Home, Self Care
[2024-07-30 12:50] VITALS: BP 120/79; PULSE 101; RESP 18; TEMP 36.6; O2SAT 100
--- NOTE | 2024-07-30 12:58 | CT_ITS ---
PROCEDURE: ABDOMEN/PELVIS W IV CONT ONLY 07/30/2024 REASON FOR EXAM: RIGHT-SIDED FLANK PAIN TECHNIQUE: Abdomen and pelvis CT with intravenous contrast. Coronal and Sagittal reconstruction series were provided. PATIENT PREPARATION: Per protocol ORAL CONTRAST TYPE: None. AMOUNT: mL One or more dose reduction techniques were used (e.g., Automated exposure control, adjustment of the mA and/or kV according to patient size, use of iterative reconstruction technique. COMPARISON: 11/28/2021 FINDINGS: Lung bases: Mild dependent atelectasis Liver: Normal size. No mass. Gallbladder: Unremarkable. Spleen: Normal size. Pancreas: Normal size without evidence of mass surrounding inflammation or ductal dilation. Adrenals: Unremarkable. Kidneys: Normal renal sizes. No hydronephrosis. Bladder: Unremarkable. Reproductive Organs: Prominent fluid and enhancement within the cul-de-sac possibly consistent with pelvic inflammatory disease. No well-defined enhancing fluid collection to suggest tubo-ovarian abscess. Bowel: No bowel obstruction. Appendix: Unremarkable. Lymph nodes: Unremarkable. Vasculature: The abdominal aorta and IVC are normal. Peritoneum / Retroperitoneum: Unremarkable. Bones: Normal. CT/Abdomen/Pelvis W IV Cont ONLY IMPRESSION: Possible pelvic inflammatory disease but no well-defined tubo-ovarian abscess. Reading Location: [id number]
[2024-07-30 13:06] LABS: Mucous, Urine 0 SEEN /hpf (<or=2+)
[2024-07-30 13:09] LABS: Absolute Lymphocyte Count 1.09 X10^3/uL (0.83-4.51); Absolute Neutrophil Count 5.4 X10^3/uL (2.0-7.7); Basophil# 0.04 X10^3/uL; Basophil% 0.5 % (0-1); Eosinophil# 0.08 X10^3/uL; Eosinophils% 1.1 % (0-5); Hematocrit 41.6 % (37-47); Hemoglobin 13.9 g/dL (12.0-15.0); Lymphocyte # 1.09 X10^3/ul (0.83-4.51); Lymphocyte % 14.7 % (19-41); Mean Corp Hgb Conc 33.4 g/dL (32-36); Mean Corpuscular Hgb 28.5 pg (27.0-32.0); Mean Corpuscular Volume 85.4 fL (81-99); Mean Platelet Vol. 10.7 fl (6.2-12.0); Monocyte# 0.75 X10^3/uL; Monocyte% 10.1 % (0-10); NRBC Flagged by Analyzer 0 % (0-5); Neutrophil # 5.35 X10^3/uL (2.7-7.7); Neutrophil % 72.1 % (47-70); Platelet Count 249 K/mm3 (150-450); RBC Distribution Width CV 14.3 % (11.6-14.6); RBC Distribution Width SD 44.7 fl (35.1-43.9); Red Blood Count 4.87 M/mm3 (4.2-5.4); White Blood Count 7.4 K/mm3 (4.4-11.0)
[2024-07-30] MEDS: 0.9% Normal Saline (1000mL) 1,000 ML 999 ML IV (13:27)
[2024-07-30] MEDS: Ondansetron 4 MG/2 ML Vial IV (13:27)
[2024-07-30 13:32] VITALS: BP 111/79; PULSE 70; RESP 16; TEMP 36.6; O2SAT 100
[2024-07-30 13:40] LABS: Color, Urine Yellow (Yellow); Glucose, Dipstick Normal (Normal); Ketone-Dipstick Negative (Negative); Leukocyte Esterase-Dipstick 100 /ul (Negative); Nitrite-Dipstick Positive (Negative); Occult Blood-Urine 250 /ul (Negative); Urine Bilirubin Dipstick Negative (Negative); Urine Clarity Clear (Clear); Urine Urobilinogen 1 mg/dl (Normal); Urine pH 6.5 (5.0 - 8.0)
[2024-07-30 13:45] LABS: ALB/GLOB Ratio 1.8 RATIO (0.9-2.4); AST(SGOT) 16 U/L (<=31); Alanine Aminotransfer ALT/SGPT 9 U/L (<=34); Alkaline Phosphatase 69 U/L (35-104); Anion Gap 13 (5-15); BUN 8 mg/dL (4-19); Calcium,Total 9.6 mg/dL (7.6-11.0); Carbon Dioxide 22.8 mmol/L (21.0-32.0); Chloride 104 mmol/L (98-108); Creatinine, Serum 0.75 mg/dL (0.70-1.20); EST Glomerular Filtration Rate 116 (>60); Estimated Creatinine Clearance 93.06 ml/min (50-250); Globulin 2.7 g/dL (2.2-4.2); Glucose 86 mg/dL (70-99); Lipase 33 U/L (13-75); Potassium 3.6 mmol/L (3.3-5.1); Protein, Total 7.7 g/dL (5.9-8.4); Sodium Level 140 mmol/L (133-145); Total Bilirubin 0.44 mg/dL (0.00-1.30)
[2024-07-30 13:54] LABS: Internal QC Validated? YES +Cl - CLEAR BKGD; Pregnancy, Urine Negative Negative; White Blood Cells 0-5 SEEN /hpf (0-5)
[2024-07-30 13:55] LABS: Bacteria 1+ /hpf (None Seen); Red Blood Cells-Urine 25-50 SEEN /hpf (0-5); Squamous Epithelial Cells - UA 0-5 SEEN /hpf (5-10)
[2024-07-30 13:58] LABS: Protein, Urine (Random) 37.2 mg/dL (0.0-12.0)
[2024-07-30 14:00] LABS: Lactic Acid < 1.0 mmol/L (0.0-2.0)
[2024-07-30 14:40] VITALS: BP 117/69; PULSE 74; RESP 18; TEMP 36.6; O2SAT 100
[2024-07-30] MEDS: Ketorolac 15 MG/ML Vial IV (15:16)
[2024-07-30 15:25] VITALS: BP 127/75; PULSE 79; RESP 18; TEMP 36.8; O2SAT 100
== END 2024-07-30 15:26 | disposition home or self-care (01) ==
PROVIDERS: Emergency Provider Emergency Medicine; PCP Family Medicine; Visit Provider Emergency Medicine
DX: A59.03 Trichomonal cystitis and urethritis (principal); F31.9 Bipolar disorder, unspecified; N39.0 Urinary tract infection, site not specified; R31.9 Hematuria, unspecified; N10 Acute pyelonephritis; Z87.891 Personal history of nicotine dependence; N73.9 Female pelvic inflammatory disease, unspecified; J45.909 Unspecified asthma, uncomplicated; F43.10 Post-traumatic stress disorder, unspecified; R11.2 Nausea with vomiting, unspecified
CPT/HCPCS: 74177; 80053; 81001; 81025; 83605; 83690; 84156; 85025; 96361; 96374; 96375; 99282; Q9967; A4216; J2405

== ENCOUNTER 2024-07-31 04:28 | Emergency (ER) | payer OTHER, MEDICAID, SELFPAY ==
[2024-07-31 04:29] VITALS: BP 103/68; PULSE 85; RESP 16; TEMP 36.5; O2SAT 100; BMI 24.0
--- NOTE | 2024-07-31 04:38 | ED.VIS.FEGU ---
HPI <Dr. Roc Bryant DO - Last Filed: 08/01/24 02:37> HPI - Female History of Present Illness Chief Complaint: Female C/O Narrative Narrative: Presents continued pelvic pain and fever. Patient seen yesterday in the ED with workup. She is being treated for PID and UTI. Patient states threw up her medications. She saw her PCP office this past Wednesday for follow-up for vaginal discharge. She was contacted on Wednesday with positive results for reported trichomonas and yeast. She is placed on Flagyl and antifungal. She states she started having pain pelvis and lower back the same day. She came to the ED yesterday for workup. She is having vomiting and diarrhea states mild blood. Denies bloody or black stools. She was put on Bactrim yesterday for urinary tract infection culture pending. She states she tried taking it however she threw it up. States she had a fever 102 orally around midnight status post Tylenol. She has been using Tylenol and Motrin with no relief of pain. Allergies to morphine has tolerated oxycodone. She does not follow a roll line operator. Of note, positive last year November she had an elective shortly after. She states she had STD screening in February that was negative. No history of STDs. Her last sexual activity was 2 weeks ago. Prior similar symptoms: No PFSH <Dr. Roc Bryant DO - Last Filed: 08/01/24 02:37> PFSH Medical History Bipolar 1 disorder, depressed PTSD (post-traumatic stress disorder) Ovarian cyst Alcohol use Marijuana use History of renal disease Low iron Blood disorder Easy bruising Excessive bleeding Back pain Migraine headache Injury of head and neck Syncope Seizures Asthma Non-smoker Leg cramps Pyelonephritis COVID-19 Anxiety and depression Home Medications ?Medication ?Instructions ?Recorded ?Last Taken ?Type albuterol sulfate 90 mcg/actuation 2 puff inhalation Q6H PRN PRN 12/01/23 Unknown History aerosol inhaler wheezing cariprazine 3 mg capsule 3 mg PO DAILY bipolar 90 days #90 02/29/24 Unknown Rx caps trazodone 50 mg tablet 50 - 100 mg (1 - 2 x 50 mg) PO QHS 04/20/24 Unknown Rx PRN sleep #60 tabs ondansetron 4 mg disintegrating 4 mg PO Q8H PRN PRN Nausea #10 tabs 07/30/24 Unknown Rx tablet sulfamethoxazole 800 1 tab PO BID 7 days #14 tabs 07/30/24 Unknown Rx mg-trimethoprim 160 mg tablet (Bactrim DS) hydrocodone-acetaminophen 5-325mg 1 tab PO Q6H PRN PRN Pain 2 days 07/31/24 Unknown Rx 5mg-325mg #8 TABLETS metronidazole 500 mg tablet 500 mg PO BID 07/31/24 Unknown History naproxen 500 mg tablet 500 mg PO BID #14 tabs 07/31/24 Unknown Rx Allergy/AdvReac Type Severity Reaction Status Date / Time morphine Allergy Hives Verified 07/31/24 04:28 Family History Mother Diabetes Surgical History History of esophagogastroduodenoscopy (EGD) (~11/2023) S/P MCL (medial collateral ligament) repair History of repair of anterior cruciate ligament of left knee History of surgery (~12/22/21) Hx of shoulder surgery History of tonsillectomy and adenoidectomy Social History Smoking Status: Current some day smoker tobacco type: cigarettes and e-cigarettes how long ago did patient quit smokin months ago alcohol intake: never substance use type: does not use caffeine: Yes Type: carbonated beverages Number of servings: 1 ROS <Dr. Roc Bryant DO - Last Filed: 08/01/24 02:37> ROS ED Constitutional Constitutional ED: Reports fever(s); Denies chills or sweats ENT ENT ED: Denies sore throat Cardiovascular Cardiovascular: Denies chest pain, leg edema, palpitations or racing heartbeat Respiratory/Chest Respiratory/Chest: Denies cough, dyspnea or dyspnea on exertion Gastrointestinal Gastrointestinal: Reports diarrhea, nausea and vomiting; Denies abdominal pain Genitourinary Genitourinary ED: Reports other Details: Pelvic pain, vaginal discharge ; Denies dysuria, hematuria or urinary frequency Musculoskeletal Musculoskeletal: Denies back pain, extremity pain or neck pain Integumentary Denies rash or wounds Neurologic Neurologic: Denies headache(s), paresthesias or weakness EXAM <Dr. Roc Bryant DO - Last Filed: 08/01/24 02:37> Physical Exam Const Vital Signs: 07/31/24 04:29 07/31/24 06:28 07/31/24 07:50 Temperature 97.7 F L 98.3 F Temperature Source Oral Pulse Rate 85 61 60 Respiratory Rate 16 16 16 Blood Pressure 103/68 93/50 L 97/47 L Blood Pressure Mean 79 64 63 Pulse Ox 100 97 99 Oxygen Delivery Method Room Air Positive well nourished and well developed Constitutional Narrative: Nontoxic General Appearance ED: well developed and NAD HEENT Reports moist mucous membranes normocephalic and atraumatic Eyes General Eye ED: Yes normal appearance of both eyes Neck full ROM Chest Wall Chest: Negative for tenderness Resp normal respiratory effort and normal air movement Effort and Inspection: symmetric chest movement; Negative for respiratory distress Cardio regular rate, regular rhythm and no murmurs Peripheral Pulses: pulses 2+ throughout GI normal to inspection, nondistended, normoactive bowel sounds and non-tender Palpation: Negative for guarding or rebound tenderness present Narrative: Tender palpation lower pelvis no guarding or rebound. Patient declines pelvic exam. Extremity normal to inspection General Extremety ED: Negative for edema or tenderness General Extremity: Negative for edema Neuro oriented x3 and no sensory deficits noted Sensorium / Orientation: awake and alert Skin no rashes or lesions noted and no wounds <Dr. Gage Abarca MD - Last Filed: 07/31/24 07:39> Physical Exam Const Vital Signs: 07/31/24 04:29 07/31/24 06:28 07/31/24 07:50 Temperature 97.7 F L 98.3 F Temperature Source Oral Pulse Rate 85 61 60 Respiratory Rate 16 16 16 Blood Pressure 103/68 93/50 L 97/47 L Blood Pressure Mean 79 64 63 Pulse Ox 100 97 99 Oxygen Delivery Method Room Air MDM <Dr. Roc Bryant DO - Last Filed: 08/01/24 02:37> MDM MDM Narrative Medical decision making narrative: Interventions / MDM: Differential diagnosis: Pelvic pain, pelvic inflammatory disease Diagnosis considered but do not suspect: Kidney stones however CT negative from yesterday. My EKG interpretation: N/A Imaging independently reviewed and interpreted by myself: N/A External documents reviewed: ED visit from yesterday. CT scan abdomen pelvis concerning pelvic inflammatory disease. No kidney stones. Urine with infection placed on Bactrim. Clinisync: July 26 lab results negative for chlamydia and gonorrhea. Positive for trichomonas and Gardnerella along with Renita. Urine culture results 50-100,000 CFU of E. coli pansensitive except for resistance to Augmentin and cefazolin. Sensitivities to third generation cephalosporins. Hospitalization November 2023 for vomiting. EGD noted nonbleeding gastric ulcers. Test considered but not ordered:N/A ED course: Patient pelvic pain surrounding pelvic telemetry disease from yesterday. Fever at midnight status post Tylenol. Secondary to continued pain I will recheck labs, will send for urine GC chlamydia, syphilis testing. She tolerated oxycodone for pain. This will be ordered. IV fluids Zofran also ordered for symptom control. Will plan for pelvic ultrasound on arrival and the morning for further testing with CT concerns for yesterday of pelvic inflammatory disease. She is covered IV Rocephin, doxycycline, and Flagyl. 0540: White count of 5.2 hemoglobin 12.5. Records reviewed she had positive trichomonas and bacterial vaginosis along with Renita from outpatient labs on July 26, 2024. Urine E. coli 50-100 thousand CFU's sensitive to cephalosporins and Bactrim. 0604: Patient more comfortable at this time. Discussed results found from her outpatient lab testing. Syphilis returned negative. Electrolytes normal. Discussed will obtain pelvic ultrasound for further evaluation. 0700: Patient signed out to morning physician. Re-evaluation: stable Disposition discussed with patient/family/significant other: Patient Case discussed with consulting clinician: N/A This note was generated with Zola dictation software. It may contain incorrect words, spelling, and punctuation that were not noted in checking the note before signing. Lab Data Attestation: I reviewed the patient's lab results. Labs: Laboratory Results - last 24 hr 07/31/24 05:07 WBC 5.2 RBC 4.38 Hgb 12.5 Hct 37.0 MCV 84.5 MCH 28.5 MCHC 33.8 RDW Std Deviation 44.0 H RDW Coeff of Rene 14.2 Plt Count 187 MPV 10.4 Immature Gran % (Auto) 0.200 Neut % (Auto) 67.6 Lymph % (Auto) 18.1 L [place] % (Auto) 11.4 H Eos % (Auto) 2.3 Baso % (Auto) 0.4 Absolute Neuts (auto) 3.5 Absolute Lymphs (auto) 0.94 Nucleated RBC % 0 Sodium 138 Potassium 3.7 Chloride 107 Carbon Dioxide 20.6 L Anion Gap 11 BUN 7 Creatinine 0.77 Estim Creat Clear Calc 90.64 Est GFR (MDRD) Non-Af 112 BUN/Creatinine Ratio 8.9 L Glucose 84 Calcium 8.8 C-React Prot Ext Range 7.48 H Syphilis Total Ab Nonreactive Radiography Diagnostic Testing: Clinical Impression(s) from Imaging Studies Transvaginal US 07/31/24 05:16 IMPRESSION: Study appears within limits as above. Reading Location: [id number] <Dr. Gage Abarca MD - Last Filed: 07/31/24 07:39> [facility] Lab Data Lab results narrative: CBC is unremarkable. Electrolyte panel is unremarkable. C-reactive protein is slightly elevated at 7.48. Labs: Laboratory Results - last 24 hr 07/31/24 05:07 WBC 5.2 RBC 4.38 Hgb 12.5 Hct 37.0 MCV 84.5 MCH 28.5 MCHC 33.8 RDW Std Deviation 44.0 H RDW Coeff of Rene 14.2 Plt Count 187 MPV 10.4 Immature Gran % (Auto) 0.200 Neut % (Auto) 67.6 Lymph % (Auto) 18.1 L [place] % (Auto) 11.4 H Eos % (Auto) 2.3 Baso % (Auto) 0.4 Absolute Neuts (auto) 3.5 Absolute Lymphs (auto) 0.94 Nucleated RBC % 0 Sodium 138 Potassium 3.7 Chloride 107 Carbon Dioxide 20.6 L Anion Gap 11 BUN 7 Creatinine 0.77 Estim Creat Clear Calc 90.64 Est GFR (MDRD) Non-Af 112 BUN/Creatinine Ratio 8.9 L Glucose 84 Calcium 8.8 C-React Prot Ext Range 7.48 H Syphilis Total Ab Nonreactive Urine culture from July 26 revealed 50,000 200,000 E. coli and was sensitive to the Bactrim she was prescribed. Urogenital panel for chlamydia and Neisseria gonorrhea were not detected. BV/vaginitis panel DNA probe was positive for bacterial vaginosis. Radiography Diagnostic Testing: Clinical Impression(s) from Imaging Studies Transvaginal US 07/31/24 05:16 IMPRESSION: Study appears within limits as above. Reading Location: [facility] Ultrasound was reviewed by me. The radiology report was read. There are no significant abnormalities noted. In light of this plan is discharged to home to follow-up with her PHYSICIAN INTERVENTIONAL CARDIOLOGIST. There is no evidence of TOA. Treatment and Re-Evaluation Narrative: Reviewing Dr. Bermudez's note indicates she presented because of continued pelvic pain and fever. Presents easy on medication to treat PID and UTI. She reported that she had emesis after taking meds. Patient does have prescription for metronidazole and Bactrim. She does have prescription for antiemetic. Since she does not have a roll line operator she was referred to Dr. Solorzano who is on for no doc. Discharge Plan Triage Chief Complaint: Female C/O ED Provider: Roc Bryant Dx/Rx/DC Orders Clinical Impression: Pelvic pain in female, Urinary tract infection, Bacterial vaginosis, Nausea & vomiting Instructions: ED Cystitis Female Adult, ED Bacterial Vaginosis (BV) Prescriptions: New hydrocodone-acetaminophen 5-325 mg tablet 1 tab PO Q6H PRN PRN (Reason: Pain) 2 Days Qty: 8 0RF naproxen 500 mg tablet 500 mg PO BID Qty: 14 0RF No Action cariprazine 3 mg capsule 3 mg PO DAILY 90 Days Qty: 90 1RF albuterol sulfate 90 mcg/actuation HFA aerosol inhaler 2 puff INHALATION Q6H PRN PRN (Reason: wheezing) sulfamethoxazole-trimethoprim [Bactrim DS] 800-160 mg tablet 1 tab PO BID 7 Days Qty: 14 0RF ondansetron 4 mg tablet,disintegrating 4 mg PO Q8H PRN PRN (Reason: Nausea) Qty: 10 0RF metronidazole 500 mg tablet 500 mg PO BID trazodone 50 mg tablet 50 - 100 mg PO QHS PRN (Reason: sleep) Qty: 60 2RF Stand Alone Forms: ED Work / School Excuse Primary Care Provider: Samuel Howell Referrals: Marybel Membreno MD [Med Staff - Active Staff] - 3-5 Days if not improving Samuel Howell MD [Primary Care Provider] - Print Language: Arabic Disposition Disposition: Home, Self Care Discharge Date/Time: 07/31/24 07:52
[2024-07-31 05:13] LABS: Absolute Lymphocyte Count 0.94 X10^3/uL (0.83-4.51); Absolute Neutrophil Count 3.5 X10^3/uL (2.0-7.7); Basophil# 0.02 X10^3/uL; Basophil% 0.4 % (0-1); Eosinophil# 0.12 X10^3/uL; Eosinophils% 2.3 % (0-5); Hemoglobin 12.5 g/dL (12.0-15.0); Lymphocyte # 0.94 X10^3/ul (0.83-4.51); Lymphocyte % 18.1 % (19-41); Mean Corp Hgb Conc 33.8 g/dL (32-36); Mean Corpuscular Hgb 28.5 pg (27.0-32.0); Mean Corpuscular Volume 84.5 fL (81-99); Mean Platelet Vol. 10.4 fl (6.2-12.0); Monocyte# 0.59 X10^3/uL; Monocyte% 11.4 % (0-10); NRBC Flagged by Analyzer 0 % (0-5); Neutrophil % 67.6 % (47-70); Platelet Count 187 K/mm3 (150-450); RBC Distribution Width CV 14.2 % (11.6-14.6); Red Blood Count 4.38 M/mm3 (4.2-5.4); White Blood Count 5.2 K/mm3 (4.4-11.0)
[2024-07-31] MEDS: Ondansetron 4 MG/2 ML Vial IV (05:14)
[2024-07-31] MEDS: 0.9% Normal Saline (1000mL) 1,000 ML 999 ML IV (05:15)
[2024-07-31] MEDS: oxyCODONE 5 MG Tablet PO (05:15)
--- NOTE | 2024-07-31 05:16 | US_ITS ---
PROCEDURE: TRANSVAGINAL NON- 07/31/2024 REASON FOR EXAM: PELVIC PAIN TECHNIQUE: Transvaginal pelvic ultrasound FINDINGS: The uterus measures 8.1 x 6.3 x 5 cm and appears within limits. Cervix appears within limits. Endometrial stripe 5 mm. The right ovary measures 4.5 x 2.2 x 2.4 cm and appears within limits. The left ovary measures 3.5 x 2.5 x 1.6 cm and appears within limits. No evidence of adnexal mass or free fluid. US/Transvaginal Non- IMPRESSION: Study appears within limits as above. Reading Location: [id number]
[2024-07-31] MEDS: Ceftriaxone 1 GM/50 ML BAG IV (05:33)
[2024-07-31] MEDS: Doxycycline 100 MG in 0.9% Normal Saline (250mL Bag) 250 ML 250 MG IV (05:45)
[2024-07-31 05:56] LABS: Anion Gap 11 (5-15); BUN 7 mg/dL (4-19); BUN/Creat Ratio 8.9 RATIO (10-20); Calcium,Total 8.8 mg/dL (7.6-11.0); Carbon Dioxide 20.6 mmol/L (21.0-32.0); Chloride 107 mmol/L (98-108); Creatinine, Serum 0.77 mg/dL (0.70-1.20); EST Glomerular Filtration Rate 112 (>60); Estimated Creatinine Clearance 90.64 ml/min (50-250); Glucose 84 mg/dL (70-99); Potassium 3.7 mmol/L (3.3-5.1); Sodium Level 138 mmol/L (133-145); Syphilis Antibodies Nonreactive (Nonreactive)
[2024-07-31] MEDS: metroNIDAZOLE 500 MG/100 ML BAG 100 MG IV (06:26)
[2024-07-31 06:28] VITALS: BP 93/50; PULSE 61; RESP 16; O2SAT 97
[2024-07-31 07:17] LABS: CRP 7.48 mg/L (0.0-3.0)
[2024-07-31 07:50] VITALS: BP 97/47; PULSE 60; RESP 16; TEMP 36.8; O2SAT 99
== END 2024-07-31 07:52 | disposition home or self-care (01) ==
PROVIDERS: Emergency Provider Emergency Medicine; PCP Family Medicine; Visit Provider Emergency Medicine
DX: R10.2 Pelvic and perineal pain (principal); Z11.3 Encounter for screening for infections with a predominantly sexual mode of transmission; N39.0 Urinary tract infection, site not specified; R19.7 Diarrhea, unspecified; N76.0 Acute vaginitis; R11.2 Nausea with vomiting, unspecified; J45.909 Unspecified asthma, uncomplicated; F17.210 Nicotine dependence, cigarettes, uncomplicated; F17.290 Nicotine dependence, other tobacco product, uncomplicated
CPT/HCPCS: 76830; 80048; 85025; 86140; 86780; 87491; 87591; 93976; 96365; 96367; 96368; 96375; 99283; J2405

== ENCOUNTER 2025-01-01 09:56 | Emergency (ER) | payer OTHER, SELFPAY ==
[2025-01-01 09:57] VITALS: BP 174/163; PULSE 83; RESP 14; TEMP 36.2; O2SAT 100
--- NOTE | 2025-01-01 10:16 | EX.ED.DYSGE1 ---
HPI History of Present Illness Chief Complaint: Abd Pain Detail of Chief Complaint: Generalized abdominal pain, night sweats, weight loss etc. Informant: patient Onset/Context/Timing Onset: - (Detailed HPI narrative) Context: Sudden Onset (Wednesday) Timing: Continuous and Waxes and wanes Quality: Depends on location Location: Generalized abdomen initially back pain bilaterally Current Severity: Moderate Maximum Severity: Severe Worsened by: Nothing Relieved by: Nothing Associated Symptoms Associated Symptoms: Nothing with the abdominal pain Narrative Narrative: Patient is a 24-year-old female. She is a G2, P1 Ab1 female whose last menses is uncertain. She presents because of bilateral lateral lower abdominal cramping pain and bilateral upper sharp pain that initially started as back pain this past Wednesday evening. She states she spent an hour and a half in the shower because of severe pain last evening. She states she was doubled over. She is still having pain. She does endorse nausea, vomiting diarrhea. That has been present since September. Patient states she stopped smoking marijuana in October. She was referred to infectious disease for workup because of problems with infection and autoimmune disorder, IgA. She also endorses history of endometriosis. She had surgery for endometriosis. She does have remote history of ovarian cysts. She was recently diagnosed with a urinary tract infection. She presently has no urinary symptoms. Last evening she had a temperature of 103.0 ?F. She has been having night sweats recently. She has had a significant weight loss over the past couple of months of approximately 40 pounds. She presently denies headache, visual, ocular auditory symptoms. She does have history of asthma and states in spite of using nebulizer she still has tightness in her chest. There is no change in the nausea, vomiting diarrhea this been present for months. She has not noted any black, maroon or blood in her stool. She has not noted any mucus in her stool. She was referred to infectious disease. She was given an order slip for lab work that she has not completed. Review of records indicates she has history of asthma, bipolar 1 disorder, PTSD and heart palpitations. Prior similar symptoms: No Recent Illness/Hospitalization: Yes [facility] Medical History Bipolar 1 disorder, depressed PTSD (post-traumatic stress disorder) Ovarian cyst Alcohol use Marijuana use History of renal disease Low iron Blood disorder Easy bruising Excessive bleeding Back pain Migraine headache Injury of head and neck Syncope Seizures Asthma Non-smoker Leg cramps Pyelonephritis COVID-19 Anxiety and depression Home Medications ?Medication ?Instructions ?Recorded ?Last Taken ?Type albuterol sulfate 90 mcg/actuation 2 puff inhalation Q6H PRN PRN 12/01/23 01/01/25 History aerosol inhaler wheezing albuterol sulfate 2.5 mg/3 mL 2.5 mg inhalation Q6H PRN 01/01/25 12/31/24 History (0.083 %) solution for nebulization shortness of breath or wheezing quetiapine 50 mg tablet 50 mg PO QHS 01/01/25 12/31/24 History Allergy/AdvReac Type Severity Reaction Status Date / Time morphine Allergy Hives Verified 01/01/25 09:57 Family History Mother Diabetes Surgical History History of esophagogastroduodenoscopy (EGD) (~11/2023) S/P MCL (medial collateral ligament) repair History of repair of anterior cruciate ligament of left knee History of surgery (~12/22/21) Hx of shoulder surgery History of tonsillectomy and adenoidectomy Social History Smoking Status: Current some day smoker tobacco type: cigarettes and e-cigarettes how long ago did patient quit smokin months ago alcohol intake: never substance use type: does not use caffeine: Yes Type: carbonated beverages Number of servings: 1 ROS ROS ED Constitutional Constitutional ED: Reports fever(s), sweats and weight loss; Denies chills or subjective Eyes Eyes: Denies blurry vision or change in vision ENT ENT ED: Denies ear pain, rhinorrhea or sore throat Cardiovascular Cardiovascular: Reports chest pain; Denies orthopnea, palpitations, paroxysmal nocturnal dyspnea or racing heartbeat Respiratory/Chest Respiratory/Chest: Reports dyspnea and dyspnea on exertion; Denies cough, orthopnea, paroxysmal nocturnal dyspnea or sputum Gastrointestinal Gastrointestinal: Reports abdominal pain, diarrhea, nausea and vomiting; Denies constipation or melena Genitourinary Genitourinary ED: Denies dysuria, hematuria or urinary frequency Musculoskeletal Musculoskeletal: Reports back pain; Denies arthralgias, myalgias or neck pain Integumentary Denies abscess or rash Neurologic Neurologic: Denies headache(s) or paresthesias Psychiatric Psychiatric: Denies anxiety or depression Endocrine Endocrinology: Denies cold intolerance or heat intolerance Hematologic/Lymphatic Hematologic/Lymphatic: Reports systems reviewed and no addt'l complaints, except as documented EXAM Physical Exam Const Vital Signs: 01/01/25 09:57 01/01/25 12:23 Temperature 97.1 F L 98.4 F Temperature Source Temporal Oral Pulse Rate 83 80 Respiratory Rate 14 18 Blood Pressure 174/163 H 112/74 Blood Pressure Mean 166 86 Pulse Ox 100 100 Oxygen Delivery Method Room Air Room Air Positive well nourished and well developed Constitutional Narrative: Vital signs reveal acceptable blood pressure however I do not believe this to be real. Will have nurse reassess. General Appearance ED: well developed HEENT Reports dry mucous membranes HEENT Narrative: Head is atraumatic and normocephalic. Ears are normal. Nares patent. Ko[place] moist. Mouth ED: Yes dry mucous membranes Mouth: dry mucous membranes Eyes PERRL and EOMs intact bilaterally General Eye ED: Negative for pale conjunctiva or scleral icterus Neck no lymphadenopathy, supple and no JVD Chest Wall inspection of chest normal and palpation of chest normal Resp normal respiratory effort and clear to auscultation bilaterally Cardio regular rate, regular rhythm, S1 normal heart sound, S2 normal heart sound and no murmurs GI no masses; Negative for non-tender, non-distended or hepatosplenomegaly Inspection: abdominal distention Auscultation: hypoactive bowel sounds Palpation: soft and tender other (Tenderness throughout greater lower quadrants.) Back/Spine no CVA tenderness Extremity normal to inspection General Extremety ED: Negative for edema or tenderness General Extremity: Negative for edema Neuro oriented x3 and CN's II-XII intact bilaterally Sensorium / Orientation: alert Psych mental status grossly normal Skin no rashes or lesions noted, no wounds and skin turgor normal General Skin Exam: Negative for elasticity normal MDM MDM MDM Narrative Medical decision making narrative: This could represent an autoimmune disorder. Need to consider possibility of IBD. Will need to review her prior records and prior labs. Her inflammatory markers were up several months ago. Will repeat to see if there is any significant increase. If she does have an autoimmune disorder this could be the cause of her fever, night sweats and weight loss. Will obtain serum test since she has not had normal menses. Patient was seen July [address] Bermudez. She was seen at that time for pelvic pain. She was found to have trichomonas infection. Patient was seen by Dr. Noriega November 2023. She had EGD performed at that time. Impression was normal esophagus, nonbleeding gastric ulcer with a visible vessel. This was treated with a monopolar probe. The first portion of the duodenum was normal. There were no specimens collected. Patient had inpatient admission November 2023 for intractable nausea and vomiting. This may have been due to cannabis hyperemesis syndrome. Third by Dr. Thibodeaux Since patient drove herself to the Emergency Department she was treated with 15 mg of ketorolac for her discomfort. Lab Data Attestation: I reviewed the patient's lab results. Lab results narrative: CBC is normal. Comprehensive metabolic panel is normal. C-reactive protein and sed rate are normal. Urine is a contaminated specimen. There is evidence of protein. Labs: Laboratory Results - last 24 hr 01/01/25 10:30 WBC 5.7 RBC 4.90 Hgb 14.2 Hct 42.3 MCV 86.3 MCH 29.0 MCHC 33.6 RDW Std Deviation 43.1 RDW Coeff of Rene 13.6 Plt Count 241 MPV 10.8 Immature Gran % (Auto) 0.400 Neut % (Auto) 58.2 Lymph % (Auto) 32.2 [place] % (Auto) 7.4 Eos % (Auto) 0.9 Baso % (Auto) 0.9 Absolute Neuts (auto) 3.3 Absolute Lymphs (auto) 1.84 Nucleated RBC % 0 ESR 5 Sodium 141 Potassium 3.6 Chloride 105 Carbon Dioxide 24.4 Anion Gap 11 BUN 11 Creatinine 0.75 Est GFR (MDRD) Non-Af 115 BUN/Creatinine Ratio 14.7 Glucose 86 Calcium 9.6 Total Bilirubin 0.82 AST 20 ALT 14 Alkaline Phosphatase 60 C-React Prot Ext Range < 3.00 Total Protein 7.8 Albumin 5.2 H Globulin 2.6 Albumin/Globulin Ratio 2.0 Serum , Qual NEGATIVE Urine Color Yellow Urine Clarity Clear Urine pH 6.0 Ur Specific [place] 1.020 Urine Protein 15 H Urine Glucose (UA) Normal Urine Ketones Negative Urine Occult Blood Negative Urine Nitrite Negative Urine Bilirubin Negative Urine Urobilinogen Normal Ur Leukocyte Esterase Negative Urine RBC 0 SEEN Urine WBC 0-5 SEEN Ur Squamous Epith Cells 10-25 SEEN Urine Bacteria 1+ Urine Mucus 1+ Treatment and Re-Evaluation :: Patient did receive IV fluids. When she was reassessed at 1453 she states her abdominal pain was better. Discharge Plan Triage Chief Complaint: Abd Pain ED Provider: Gage Abarca Dx/Rx/DC Orders Clinical Impression: Generalized abdominal pain, Unintentional weight loss of 7.5% body weight or less within 3 months, Night sweat, Fever in adult, Hx of endometriosis Instructions: ED Abdominal Pain Unkn Cause Fem Prescriptions: No Action albuterol sulfate 90 mcg/actuation HFA aerosol inhaler 2 puff INHALATION Q6H PRN PRN (Reason: wheezing) quetiapine 50 mg tablet 50 mg PO QHS albuterol sulfate 2.5 mg /3 mL (0.083 %) solution for nebulization 2.5 mg inhalation Q6H PRN (Reason: shortness of breath or wheezing) Patient Comments: [NO ORIGINAL SIG] Primary Care Provider: Samuel Howell Referrals: Samuel Howell MD [Primary Care Provider, Medical] - 5-7 Days Print Language: Lao Disposition Disposition: Home, Self Care
[2025-01-01 10:40] LABS: Red Blood Cells-Urine 0 SEEN /hpf (0-5)
[2025-01-01 10:43] LABS: Color, Urine Yellow (Yellow); Glucose, Dipstick Normal (Normal); Ketone-Dipstick Negative (Negative); Leukocyte Esterase-Dipstick Negative /ul (Negative); Nitrite-Dipstick Negative (Negative); Occult Blood-Urine Negative /ul (Negative); Protein-Dipstick 15 mg/dl (Negative); Specific Gravity, Urine 1.020 (1.002-1.030); Urine Bilirubin Dipstick Negative (Negative)
[2025-01-01 10:52] LABS: Hematocrit 42.3 % (37-47); Hemoglobin 14.2 g/dL (12.0-15.0); Immature Granulocytes Count 0.020 X10^3/uL (0.0-0.0); Mean Corp Hgb Conc 33.6 g/dL (32-36); Mean Corpuscular Volume 86.3 fL (81-99); Mean Platelet Vol. 10.8 fl (6.2-12.0); NRBC Flagged by Analyzer 0 % (0-5); Platelet Count 241 K/mm3 (150-450); RBC Distribution Width CV 13.6 % (11.6-14.6); RBC Distribution Width SD 43.1 fl (35.1-43.9); Red Blood Count 4.90 M/mm3 (4.2-5.4); White Blood Count 5.7 K/mm3 (4.4-11.0)
[2025-01-01 10:53] LABS: Internal QC Validated? YES +Cl - CLEAR BKGD; Pregnancy, Serum, hCG Quali. NEGATIVE Negative
[2025-01-01 10:54] LABS: Record Kit Lot#, Serum Preg. 980607
[2025-01-01 10:59] LABS: Mucous, Urine 1+ /hpf (<or=2+); Squamous Epithelial Cells - UA 10-25 SEEN /hpf (5-10)
[2025-01-01 11:16] LABS: AST(SGOT) 20 U/L (<=31); Alanine Aminotransfer ALT/SGPT 14 U/L (<=34); Albumin, Serum 5.2 g/dL (3.5-5.0); Alkaline Phosphatase 60 U/L (35-104); Anion Gap 11 (5-15); BUN 11 mg/dL (4-19); BUN/Creat Ratio 14.7 RATIO (10-20); Calcium,Total 9.6 mg/dL (7.6-11.0); Carbon Dioxide 24.4 mmol/L (21.0-32.0); Chloride 105 mmol/L (98-108); Globulin 2.6 g/dL (2.2-4.2); Glucose 86 mg/dL (70-99); Potassium 3.6 mmol/L (3.3-5.1)
[2025-01-01 11:40] LABS: CRP < 3.00 mg/L (0.0-3.0)
[2025-01-01 12:23] VITALS: BP 112/74; PULSE 80; RESP 18; TEMP 36.9; O2SAT 100
[2025-01-01] MEDS: Dextrose 5%/0.9% NaCl 1,000 ML 999 ML IV (13:09)
[2025-01-01 15:18] VITALS: BP 118/77; PULSE 83; RESP 16; TEMP 36.8; O2SAT 100
== END 2025-01-01 15:19 | disposition home or self-care (01) ==
PROVIDERS: Emergency Provider Emergency Medicine; PCP Family Medicine; Visit Provider Emergency Medicine
DX: R10.84 Generalized abdominal pain (principal); R50.9 Fever, unspecified; J45.909 Unspecified asthma, uncomplicated; F17.210 Nicotine dependence, cigarettes, uncomplicated; F17.290 Nicotine dependence, other tobacco product, uncomplicated; R06.09 Other forms of dyspnea; R07.9 Chest pain, unspecified; R63.4 Abnormal weight loss; R61 Generalized hyperhidrosis; Z87.42 Personal history of other diseases of the female genital tract
CPT/HCPCS: 80053; 81001; 84703; 85025; 85652; 86140; 96365; 96375; 99283; A4216